=== PATIENT | female | born 1975 | race Caucasian/White ===

== ENCOUNTER 2018-04-01 13:52 | Inpatient (IN) | payer OTHER, SELFPAY ==
[2018-04-01] VITALS (21 sets, daily range): BP systolic 110–152; BP diastolic 49–98; PULSE 77–106; RESP 17–29; TEMP 36.3–36.9; O2SAT 88–100; BMI 28.0; BMI 28.1
--- NOTE | 2018-04-01 | LARBX_PTH ---
PATIENT: ALIREZA GARZA LOC: MS2 U#:[id number] AGE/SX: 43/F [place] [facility] [place]: Dr. Brandon Phan MD : 1975 BED: 1 DIS: 04/05/2018 SPEC #: [id number] RECD: 04/01/18 16:31 STATUS: JOSE RADHA #: [id number] JASON: 04/01/18 00:[address]: Brandon Phan DEPT: SURGICAL PATHOLOGY RECD BY: Porter Botello ENTERED: 04/02/18 12:31 SP TYPE: LARYNX BX OTHR DR: Dr. Eric Fuller, DO No Primary Care Phys Tissues: Laryngeal cavity Procedures: Surgery Specimen Level IV HEADER OPERATION: Diagnostic laryngoscopy, biopsy PRE-OP DIAGNOSIS: Neoplasm of uncertain behavior of larynx TISSUE SUBMITTED: Laryngeal mass MICROSCOPIC DIAGNOSIS Laryngeal mass, biopsy: Polypoid fragments of squamous mucosa with extensive ulceration, associated acute inflammation, granulation tissue reaction and superficial bacterial colonization. Negative for malignancy. See comment. MINA:sandra 04/03/18 COMMENT The findings may represent fragments of benign vocal cord polyp with ulceration and associated inflammation. Correlation with clinical findings and appropriate follow up are necessary. Case has been reviewed in consultation with Dr. Martines who concurs with the above diagnosis. IDC:CE MICROSCOPIC DESCRIPTION Slides are reviewed. GROSS DESCRIPTION Received in fixative is one container labeled with the patient's name and designated laryngeal mass. The specimen consists of multiple irregular fragments of murphy-pink soft tissue that in aggregate measure 2.5 x 2 x 0.3 cm. The entire specimen is submitted in one cassette. / MINA:sandra 04/02/18 TC: 5 [facility]: [id number]
--- NOTE | 2018-04-01 11:10 | EKG12_ITS ---
Test Reason : PRE OP Blood Pressure : / mmHG Vent. Rate : 088 BPM Atrial Rate : 088 BPM P-R Int : 144 ms QRS Dur : 070 ms QT Int : 356 ms P-R-T Axes : 057 078 051 degrees QTc Int : 430 ms Normal sinus rhythm Normal ECG Confirmed by HOLDEN KENDRICK, JULIET ([id number]), assistant production editor LIBERTY PATTON ([id number]) on 04/03/2018 11:01:03 AM Referred By: Hayden Phan Confirmed By:JULIET HATCH MD
--- NOTE | 2018-04-01 11:19 | RAD_ITS ---
STUDY: X-RAY CHEST REASON FOR EXAM: Female, 43 years old. Preoperative evaluation. TECHNIQUE: PA and lateral views of the chest. COMPARISON: None. FINDINGS: The lungs are clear and expanded. Scattered calcified granulomas. There is no demonstrated pleural abnormality. Normal size heart. Normal mediastinum and sammy. Normal visualized pulmonary arteries. Normal visualized aortic arch and descending thoracic aorta. Normal visualized thoracic spine. Normal visualized ribs, clavicles, and shoulders. There is no demonstrated abnormality of the visualized soft tissue structures of the upper abdomen. RAD/Chest PA and Lateral IMPRESSION: Scattered calcified granulomas. Electronically Signed: Kevin Fournier MD at 11:28 EST , Service support ,
--- NOTE | 2018-04-01 12:37 | OP.PCM_ITS ---
Problem List (1) Laryngeal mass Status: Chronic Report of Operation Date of Procedure: 04/01/18 Pre-Operative Diagnosis: 1. laryngeal mass. 2. respiratory failure Post-Operative Diagnosis: 1. laryngeal mass. 2. respiratory failure Surgery/Procedure Performed:: 1. tracheostomy with marion flap. 2. laryngeal biopsy with use of operative telescope Type of Anesthesia:: General Specimen's removed: laryngeal mass Description of Procedure: on the day of the procedure, after appropriate informed consent was obtained, the patient was brought to the operating room and placed in supine position on the operating table. she was placed under general endotracheal anesthesia by the anesthesiologist. the endotracheal tube was secured, the eyes were taped and padded. given the view in the office of her larynx as well as the glide scope view, i decided to place a tracheostomy. 1cc of lidocaine/epinephrine was injected into a transverse area in the low neck. the neck was prepped and draped in sterile fashion. a 2cm incision was made in the low neck transverseley with a #15 blade. the subcutaneous fat was divided and the superficial strap muscles were found along the midline raphe and retracted laterally. the deep strap muscles were also retracted. the airway was bluntly dissected and the pretracheal fascia was divided and elevated with a vein hook. tracheal rings 1 and 2 were found and a 15 blade was used to enter the airway. the tracheal ring was sutured to overlying skin with a 2-0 ethibond but no marion flap was created. the endotracheal tube was retracted, the airway was suctioned and a #6DCT was placed and inflated. end tidal CO2 returned. the trach was sutured to the skin with 3-0 vicryl. an umbilical tie was used to secure the trach. the table was rotated 90 degrees toward the surgeon. a raytec was placed on the maxillary alveolus. a phil laryngoscope was inserted and a good glottic view was obtained; this was suspended from the walton stand. immediately a 1.5- 2cm mass was seen nearly obstructing the airway. a spatula was used to examine the larynx. the mass was coming from the right true vocal cord; it appeared to involve the anterior commissure. she had severe andreina edema on the left, but no masses/involvement. a cupped biting forceps was used to take numerous biopsies of the mass and hemostasis was achieved. the table was rotated 90 degrees toward the anesthesiologist. she was brought out of anesthesia and transferred to the ICU in stable condition.
[2018-04-01] MEDS: Lubricating Jelly 60 GM Tube 30 GM TOPICAL (13:00)
[2018-04-01] MEDS: Oxymetazoline 0.05% 1 SPRAY SPRAY.BTL 15 SPRAY (13:28)
--- NOTE | 2018-04-01 13:49 | HP.PCM_ITS ---
History of Present Illness Date of Admission: 04/01/18 Chief Complaint: Trach, Laryngeal mass bx Problem List: Acute Recently Found Laryngeal Mass Suspected Chronic COPD Tobacco use The patient is a 43 y/o F w/ PMHx: Tobacco use, Recently Found Laryngeal Mass with history of chronically hoarse voice, worsening over the last 2 weeks w/ recent mild URI in addition to intermittent dyspnea, worse with any exertional attempts with sensation of airway closing up who presents to the [facility] for planned 04/01/18 Tracheostomy with marion flap with healed biopsy per ENT Dr. Phan. Alix-operatively the patient per his report had no events. Dr. Phan requests hospitalist admission post-operatively secondary to being intermittently available following OR and notes his partners will be available should any issues arise with the patient. He notes plan of care to continue trach care, routine ICU care, planned trach change to possibly cuffless trach on with discharge at that time if clinically appropriate. Upon ICU transition patient w/ increase secretions, very lethargic s/p recent anesthetics w/ trach mask in place. Past Medical History Past Medical History (Chronic Problems): Chronic Problems Laryngeal mass (Chronic) Allergies red dye Allergy (Verified 03/29/18 16:10) Swelling Home Medications: Ambulatory Orders Medication Instructions Recorded NK 03/29/18 Surgical History: - - BLTL, recent Tracheostomy and Larnygneal Bx. 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 Tobacco Use: Cigarettes Alcohol: Occasional Drugs: None - *Family History Maternal History Items: Unknown - Patient lethargic, unable to give family history. Paternal History Items: Unknown - Patient lethargic, unable to give family history. Review of Systems Unable to obtain accurate/complete ROS d/t: Lethargic, sedate s/p recent anesthesia, prior to OR ENT noted hoarse VTE Information - Inpt Only VTE Present on Admission: No VTE Mechan Device Prophylaxis: SCD's VTE Pharm Prophylaxis ordered?: Yes Subjective: Seated upright in the ICU bed, lethargic, not answering any questions, will move to stimuli, not opening eyes, recent anesthetics. Objective: Physical Examination: General: awakens to some stimuli, not alert, not oriented, cannot follow commands, seated upright in the ICU bed, intermittent coughing, trach O2 mask in place. Skin: normal color, turgor, no icterus, cyanosis, s/p recent trach, some mild oozing noted. HEENT: AT/NC aside recent trach placement, EOM unable to be assessed secondary to sedation, PERRLA, dry MM, no carotid bruits or JVD noted. Lungs: Diminished BS BL bases, increased effort, recent trach, mildly coarse, increased upper airway secretions, some fresh minimal oozing from trach site, no no rales, ronchi or wheezing. Heart: Regular rate and rhythm; no gallop, rub audible. Abdomen: soft, overweight, NTTP, ND, normal BS, no HSM. Extremities: no cyanosis, clubbing, or edema. Neurological: awakens to some stimuli, not alert, not oriented, cannot follow commands, seated upright in the ICU bed, intermittent coughing, trach O2 mask in place; cognitive function not baseline intact; pupils equally reactive to light and accomodation; cranial nerves unable to be assessed well secondary to sedation w/ recent anesthetics, moving all 4 extremities to stimuli but severely globally decreased strength given recent OR with sedation. Psychiatric: affect appears flat, no acute evidence of depressive or anxiety feelings. - Physical Exam Vital Signs Temp Pulse Resp BP Pulse Ox 98.5 F 97 18 134/86 H 100 04/01/18 11:19 04/01/18 11:19 04/01/18 11:19 04/01/18 11:19 04/01/18 11:19 Oxygen Delivery Method Room Air Weight: 179 lb 0.246 oz Body Mass Index (BMI) 28.0 Assessment/Plan The patient is a 43 y/o F w/ PMHx: Tobacco use, Recently Found Laryngeal Mass with history of chronically hoarse voice, worsening over the last 2 weeks w/ recent mild URI who presents to the [facility] for planned 04/01/18 Tracheostomy with marion flap with healed biopsy per ENT Dr. Phan. (1) Tracheal Mass w/ Chronic Hoarseness, Possible Intermittent Dyspnea secondary to Ball-Valve Movement of Mass: 04/01/18 Tracheostomy with marion flap with healed biopsy per ENT Dr. Phan. Will admit to the ICU per discussion w/ ENT, once more alert and appropriate allow diet, HOB, IS, ATC duoneb, PRN albuterol, continue trach care, routine ICU care, planned trach change to possibly cuffless trach on with discharge at that time if clinically appropriate, obtain admission labs, repeat labs in AM, PRN low dose IV ativan for anxiety per d iscussion with ENT as worsened symptoms with exertion or more anxious secondary to breathing alterations w/ type of shape of the mass. Bx pathology pending. ICU Dr. Fuller consulted, aware. (2) Suspected Possible Chronic COPD: Will maintain on oxygen with wean as tolerated to room air, continue ATC duonebs, PRN albuterol, trach care as noted, HOB, IS parameters. (3) Tobacco Abuse: Encouraged cessation, inpatient consultation per RT, NR if desired. (4) GERD: Famotidine. (5) DVT Prophylaxis: SCDs, lovenox to start 04/02/18 AM if appropriate. Code Visit Inpatient E&M: 71169 Init Hosp L3
--- NOTE | 2018-04-01 14:34 | PCM.CON.CC ---
Reason for Consult Date of Consultation: 04/01/18 Reason for Consultation: Respiratory failure History of Present Illness: The patient is a 43-year-old female, with a history as outlined below, who was admitted to the medical intensive care unit by ENT following tracheostomy with marion flap on April 01 due to the presence of a laryngeal mass. Although the patient was initially brought in in order to obtain a biopsy of the aforementioned laryngeal mass, upon direct visualization, the patient was felt to need a secure airway given the size of the lesion. The patient's operative course was uncomplicated. Her postoperative plain film chest x-ray was largely unremarkable, with the exception of scattered calcified granulomas. Of note, the patient is a current everyday smoker and has a tobacco abuse history of approximately 29 pack years. On arrival to the ICU, the patient was afebrile and hemodynamically stable. She was maintaining appropriate oxygen saturations on a 50% trach collar. Past Medical History Past Medical History (Chronic Problems): Chronic Problems Laryngeal mass (Chronic) Allergies red dye Allergy (Verified 03/29/18 16:10) Swelling Home Medications: Ambulatory Orders Medication Instructions Recorded NK 03/29/18 Surgical History: - - BLTL, recent Tracheostomy and Larnygneal Bx. 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 Tobacco Use: Cigarettes Alcohol: Occasional Drugs: None - *Family History Maternal History Items: Unknown - Patient lethargic, unable to give family history. Paternal History Items: Unknown - Patient lethargic, unable to give family history. Review of Systems Constitutional: Denies: Chills, Fever Eyes: Denies: Blurred vision, Double vision HEENT: Reports: Difficulty Swallowing Cardiovascular: Denies: Chest Pain, Palpitations Respiratory: Reports: Shortness of Breath Gastrointestinal: Denies: Abdominal Pain, Nausea, Vomiting Genitourinary: Denies: Dysuria Musculoskeletal: Denies: Joint Pain, Joint Tenderness Skin: Denies: Rash, Wounds Neurological: Denies: Numbness, Tingling, Focal weakness Psychiatric: Denies: Anxiety, Depression, Homicidal Ideations, Suicidal Ideations Hematologic/ Lymphatic: Denies: Easy Bruising, Easy Bleeding Objective: The patient's most recent lab work, culture data and imaging studies have all been personally reviewed. - Physical Exam General: Alert, Cooperative, No apparent distress HEENT: Atraumatic, PERRLA, Normocephalic Oral: No Gingival or Mucosal Lesions/ Ulcerations Neck: Supple, No Nodes, Trachea Midline, - - Tracheostomy site is C/D/I Lungs: No rhonchi, No wheeze, No rales, Diminished Cardiovascular: Regular rate, Regular Rhythm, Normal S1, Normal S2, No murmurs Abdomen: Bowel Sounds Present, Soft, Non Tender Extremities: No clubbing, No cyanosis, No edema Skin: No breakdown Musculoskeletal: No Tenderness to Palpation of Joints or Extremities Lymphatic: No Cervical, Supraclavicular, or Inguinal Adenopathy Neurological: Cranial nerves II-XII grossly intact, Neuro grossly intact Psych/Mental Status: Flat Affect Vital Signs Temp Pulse Resp BP Pulse Ox 36.3 C L 85 24 H 110/88 H 93 04/01/18 14:01 04/01/18 14:01 04/01/18 14:01 04/01/18 14:01 04/01/18 14:01 Oxygen Flow Rate (L/min) 12 Oxygen Delivery Method Venturi Mask Weight: 179 lb 0.246 oz Body Mass Index (BMI) 28.0 Clinical Impression(s) from Imaging Studies Chest X-Ray 04/01/18 11:19 IMPRESSION: Scattered calcified granulomas. Electronically Signed: Kevin Fournier MD at 11:28 EST , Service support , Labs (Last 48 Hours) 04/01/18 04/01/18 04/02/18 14:50 14:50 04:45 WBC 7.9 10.5 RBC 4.88 4.79 Hgb 13.9 13.7 Hct 42.4 42.0 MCV 86.9 87.7 MCH 28.5 28.6 MCHC 32.8 32.6 RDW 13.2 13.4 RDW Differential 42.1 42.2 Plt Count 275 258 MPV 9.8 9.6 Immature Gran % (Auto) 0.100 0.200 Neut % (Auto) 58.9 77.0 H Lymph % (Auto) 33.1 14.6 L [place] % (Auto) 5.9 7.7 Eos % (Auto) 1.7 0.3 Baso % (Auto) 0.3 0.2 Absolute Neuts (auto) 4.6 8.1 H Absolute Lymphs (auto) 2.60 1.53 Total Counted Not Reportable Not Reportable Sodium 143 Potassium 3.7 Chloride 110 H Carbon Dioxide 25.0 Anion Gap 8 BUN 6 L Creatinine 0.46 L Estim Creat Clear Calc 150.19 Est GFR (MDRD) Af Amer 189 Est GFR (MDRD) Non-Af 156 BUN/Creatinine Ratio 13.0 Glucose 101 Calcium 8.3 L Magnesium 1.8 04/02/18 04:45 WBC RBC Hgb Hct MCV MCH MCHC RDW RDW Differential Plt Count MPV Immature Gran % (Auto) Neut % (Auto) Lymph % (Auto) [place] % (Auto) Eos % (Auto) Baso % (Auto) Absolute Neuts (auto) Absolute Lymphs (auto) Total Counted Sodium 143 Potassium 3.7 Chloride 110 H Carbon Dioxide 24.0 Anion Gap 9 BUN 3 L Creatinine 0.36 L Estim Creat Clear Calc 184.74 Est GFR (MDRD) Af Amer 254 Est GFR (MDRD) Non-Af 210 BUN/Creatinine Ratio 8.4 L Glucose 102 Calcium 8.2 L Magnesium Clinical Impression(s) from Imaging Studies Chest X-Ray 04/01/18 11:19 IMPRESSION: Scattered calcified granulomas. Electronically Signed: Kevin Fournier MD at 11:28 EST , Service support , Assessment/Plan RECOMMENDATIONS: 1. Continue routine postoperative care. 2. Speech therapy evaluation tomorrow 3. Wean FiO2 as tolerated. 4. Pain control per hospitalist. 5. Continue as needed aerosol treatments 6. Start Lovenox and Pepcid for ICU prophylaxis 7. Consider initiation of nicotine replacement therapy. IMPRESSIONS: 1. Laryngeal mass, now POD #0 status post biopsy and tracheostomy The patient currently has a #6DCT in place. We will plan to continue to wean supplemental oxygen as tolerated. There is no current need for any form of ventilatory support. Continue pain control and routine postoperative care. ENT to follow for suture removal. Recommend speech therapy evaluation tomorrow. Continue bronchodilators on an as-needed basis. 2. Long-standing tobacco abuse history/questionable COPD Consider initiation of nicotine replacement therapy. Smoking cessation is strongly advisable. As needed bronchodilators will be continued. This note was generated with [employer] dictation software. It may contain incorrect words, spelling, and punctuation that were not noted in checking the note before signing. Code Visit Inpatient E&M: 26637 Init Hosp L3
--- NOTE | 2018-04-01 14:38 | CON.PCM_ITS ---
Reason for Consult Date of Consultation: 04/01/18 Reason for Consultation: Respiratory failure History of Present Illness: The patient is a 43-year-old female, with a history as outlined below, who was admitted to the medical intensive care unit by ENT following tracheostomy with marion flap on April 01 due to the presence of a laryngeal mass. Although the patient was initially brought in in order to obtain a biopsy of the aforementioned laryngeal mass, upon direct visualization, the patient was felt to need a secure airway given the size of the lesion. The patient's operative course was uncomplicated. Her postoperative plain film chest x-ray was largely unremarkable, with the exception of scattered calcified granulomas. Of note, the patient is a current everyday smoker and has a tobacco abuse history of approximately 29 pack years. On arrival to the ICU, the patient was afebrile and hemodynamically stable. She was maintaining appropriate oxygen saturations on a 50% trach collar. Past Medical History Past Medical History (Chronic Problems): Chronic Problems Laryngeal mass (Chronic) Allergies red dye Allergy (Verified 03/29/18 16:10) Swelling Home Medications: Ambulatory Orders Medication Instructions Recorded NK 03/29/18 Surgical History: - - BLTL, recent Tracheostomy and Larnygneal Bx. 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 Tobacco Use: Cigarettes Alcohol: Occasional Drugs: None - *Family History Maternal History Items: Unknown - Patient lethargic, unable to give family history. Paternal History Items: Unknown - Patient lethargic, unable to give family history. Review of Systems Constitutional: Denies: Chills, Fever Eyes: Denies: Blurred vision, Double vision HEENT: Reports: Difficulty Swallowing Cardiovascular: Denies: Chest Pain, Palpitations Respiratory: Reports: Shortness of Breath Gastrointestinal: Denies: Abdominal Pain, Nausea, Vomiting Genitourinary: Denies: Dysuria Musculoskeletal: Denies: Joint Pain, Joint Tenderness Skin: Denies: Rash, Wounds Neurological: Denies: Numbness, Tingling, Focal weakness Psychiatric: Denies: Anxiety, Depression, Homicidal Ideations, Suicidal Ideations Hematologic/ Lymphatic: Denies: Easy Bruising, Easy Bleeding Objective: The patient's most recent lab work, culture data and imaging studies have all been personally reviewed. - Physical Exam General: Alert, Cooperative, No apparent distress HEENT: Atraumatic, PERRLA, Normocephalic Oral: No Gingival or Mucosal Lesions/ Ulcerations Neck: Supple, No Nodes, Trachea Midline, - - Tracheostomy site is C/D/I Lungs: No rhonchi, No wheeze, No rales, Diminished Cardiovascular: Regular rate, Regular Rhythm, Normal S1, Normal S2, No murmurs Abdomen: Bowel Sounds Present, Soft, Non Tender Extremities: No clubbing, No cyanosis, No edema Skin: No breakdown Musculoskeletal: No Tenderness to Palpation of Joints or Extremities Lymphatic: No Cervical, Supraclavicular, or Inguinal Adenopathy Neurological: Cranial nerves II-XII grossly intact, Neuro grossly intact Psych/Mental Status: Flat Affect Vital Signs Temp Pulse Resp BP Pulse Ox 36.3 C L 85 24 H 110/88 H 93 04/01/18 14:01 04/01/18 14:01 04/01/18 14:01 04/01/18 14:01 04/01/18 14:01 Oxygen Flow Rate (L/min) 12 Oxygen Delivery Method Venturi Mask Weight: 179 lb 0.246 oz Body Mass Index (BMI) 28.0 Clinical Impression(s) from Imaging Studies Chest X-Ray 04/01/18 11:19 IMPRESSION: Scattered calcified granulomas. Electronically Signed: Kevin Fournier MD at 11:28 EST , Service support , Labs (Last 48 Hours) 04/01/18 04/01/18 04/02/18 14:50 14:50 04:45 WBC 7.9 10.5 RBC 4.88 4.79 Hgb 13.9 13.7 Hct 42.4 42.0 MCV 86.9 87.7 MCH 28.5 28.6 MCHC 32.8 32.6 RDW 13.2 13.4 RDW Differential 42.1 42.2 Plt Count 275 258 MPV 9.8 9.6 Immature Gran % (Auto) 0.100 0.200 Neut % (Auto) 58.9 77.0 H Lymph % (Auto) 33.1 14.6 L [place] % (Auto) 5.9 7.7 Eos % (Auto) 1.7 0.3 Baso % (Auto) 0.3 0.2 Absolute Neuts (auto) 4.6 8.1 H Absolute Lymphs (auto) 2.60 1.53 Total Counted Not Reportable Not Reportable Sodium 143 Potassium 3.7 Chloride 110 H Carbon Dioxide 25.0 Anion Gap 8 BUN 6 L Creatinine 0.46 L Estim Creat Clear Calc 150.19 Est GFR (MDRD) Af Amer 189 Est GFR (MDRD) Non-Af 156 BUN/Creatinine Ratio 13.0 Glucose 101 Calcium 8.3 L Magnesium 1.8 04/02/18 04:45 WBC RBC Hgb Hct MCV MCH MCHC RDW RDW Differential Plt Count MPV Immature Gran % (Auto) Neut % (Auto) Lymph % (Auto) [place] % (Auto) Eos % (Auto) Baso % (Auto) Absolute Neuts (auto) Absolute Lymphs (auto) Total Counted Sodium 143 Potassium 3.7 Chloride 110 H Carbon Dioxide 24.0 Anion Gap 9 BUN 3 L Creatinine 0.36 L Estim Creat Clear Calc 184.74 Est GFR (MDRD) Af Amer 254 Est GFR (MDRD) Non-Af 210 BUN/Creatinine Ratio 8.4 L Glucose 102 Calcium 8.2 L Magnesium Clinical Impression(s) from Imaging Studies Chest X-Ray 04/01/18 11:19 IMPRESSION: Scattered calcified granulomas. Electronically Signed: Kevin Fournier MD at 11:28 EST , Service support , Assessment/Plan RECOMMENDATIONS: 1. Continue routine postoperative care. 2. Speech therapy evaluation tomorrow 3. Wean FiO2 as tolerated. 4. Pain control per hospitalist. 5. Continue as needed aerosol treatments 6. Start Lovenox and Pepcid for ICU prophylaxis 7. Consider initiation of nicotine replacement therapy. IMPRESSIONS: 1. Laryngeal mass, now POD #0 status post biopsy and tracheostomy The patient currently has a #6DCT in place. We will plan to continue to wean supplemental oxygen as tolerated. There is no current need for any form of ventilatory support. Continue pain control and routine postoperative care. ENT to follow for suture removal. Recommend speech therapy evaluation tomorrow. Continue bronchodilators on an as-needed basis. 2. Long-standing tobacco abuse history/questionable COPD Consider initiation of nicotine replacement therapy. Smoking cessation is strongly advisable. As needed bronchodilators will be continued. This note was generated with [employer] dictation software. It may contain incorrect words, spelling, and punctuation that were not noted in checking the note before signing. Code Visit Inpatient E&M: 39940 Init Hosp L3
[2018-04-01] MEDS: LORazepam 2 MG/ML Syringe 0.5 MG IV (14:45)
--- NOTE | 2018-04-01 14:45 | NURSING ---
Pt w/ strong forceful coughing, moderate secretions, crying and tearful upon arrival to ICU. Pt not fully waking up or communicating. Continues to thrash around in bed and flail arms. Ativan given for these reasons.
--- NOTE | 2018-04-01 14:53 | PCM.HP.STD ---
History of Present Illness Date of Admission: 04/01/18 Chief Complaint: Trach, Laryngeal mass bx Problem List: Acute Recently Found Laryngeal Mass Suspected Chronic COPD Tobacco use The patient is a 43 y/o F w/ PMHx: Tobacco use, Recently Found Laryngeal Mass with history of chronically hoarse voice, worsening over the last 2 weeks w/ recent mild URI in addition to intermittent dyspnea, worse with any exertional attempts with sensation of airway closing up who presents to the [facility] for planned 04/01/18 Tracheostomy with marion flap with healed biopsy per ENT Dr. Phan. Alix-operatively the patient per his report had no events. Dr. Phan requests hospitalist admission post-operatively secondary to being intermittently available following OR and notes his partners will be available should any issues arise with the patient. He notes plan of care to continue trach care, routine ICU care, planned trach change to possibly cuffless trach on with discharge at that time if clinically appropriate. Upon ICU transition patient w/ increase secretions, very lethargic s/p recent anesthetics w/ trach mask in place. Past Medical History Past Medical History (Chronic Problems): Chronic Problems Laryngeal mass (Chronic) Allergies red dye Allergy (Verified 03/29/18 16:10) Swelling Home Medications: Ambulatory Orders Medication Instructions Recorded NK 03/29/18 Surgical History: - - BLTL, recent Tracheostomy and Larnygneal Bx. Psychiatric History: No pertinent psych hx INSTRUMENT MAN History: No pertinent INSTRUMENT MAN history Lives: Spouse/ Significant Other Smoking Status: Current every day smoker - 1 ppd tobacco x 29 years. Tobacco Use: Cigarettes Alcohol: Occasional Drugs: None - *Family History Maternal History Items: Unknown - Patient lethargic, unable to give family history. Paternal History Items: Unknown - Patient lethargic, unable to give family history. Review of Systems Unable to obtain accurate/complete ROS d/t: Lethargic, sedate s/p recent anesthesia, prior to OR ENT noted hoarse VTE Information - Inpt Only VTE Present on Admission: No VTE Mechan Device Prophylaxis: SCD's VTE Pharm Prophylaxis ordered?: Yes Subjective: Seated upright in the ICU bed, lethargic, not answering any questions, will move to stimuli, not opening eyes, recent anesthetics. Objective: Physical Examination: General: awakens to some stimuli, not alert, not oriented, cannot follow commands, seated upright in the ICU bed, intermittent coughing, trach O2 mask in place. Skin: normal color, turgor, no icterus, cyanosis, s/p recent trach, some mild oozing noted. HEENT: AT/NC aside recent trach placement, EOM unable to be assessed secondary to sedation, PERRLA, dry MM, no carotid bruits or JVD noted. Lungs: Diminished BS BL bases, increased effort, recent trach, mildly coarse, increased upper airway secretions, some fresh minimal oozing from trach site, no no rales, ronchi or wheezing. Heart: Regular rate and rhythm; no gallop, rub audible. Abdomen: soft, overweight, NTTP, ND, normal BS, no HSM. Extremities: no cyanosis, clubbing, or edema. Neurological: awakens to some stimuli, not alert, not oriented, cannot follow commands, seated upright in the ICU bed, intermittent coughing, trach O2 mask in place; cognitive function not baseline intact; pupils equally reactive to light and accomodation; cranial nerves unable to be assessed well secondary to sedation w/ recent anesthetics, moving all 4 extremities to stimuli but severely globally decreased strength given recent OR with sedation. Psychiatric: affect appears flat, no acute evidence of depressive or anxiety feelings. - Physical Exam Vital Signs Temp Pulse Resp BP Pulse Ox 98.5 F 97 18 134/86 H 100 04/01/18 11:19 04/01/18 11:19 04/01/18 11:19 04/01/18 11:19 04/01/18 11:19 Oxygen Delivery Method Room Air Weight: 179 lb 0.246 oz Body Mass Index (BMI) 28.0 Assessment/Plan The patient is a 43 y/o F w/ PMHx: Tobacco use, Recently Found Laryngeal Mass with history of chronically hoarse voice, worsening over the last 2 weeks w/ recent mild URI who presents to the [facility] for planned 04/01/18 Tracheostomy with marion flap with healed biopsy per ENT Dr. Phan. (1) Tracheal Mass w/ Chronic Hoarseness, Possible Intermittent Dyspnea secondary to Ball-Valve Movement of Mass: 04/01/18 Tracheostomy with marion flap with healed biopsy per ENT Dr. Phan. Will admit to the ICU per discussion w/ ENT, once more alert and appropriate allow diet, HOB, IS, ATC duoneb, PRN albuterol, continue trach care, routine ICU care, planned trach change to possibly cuffless trach on with discharge at that time if clinically appropriate, obtain admission labs, repeat labs in AM, PRN low dose IV ativan for anxiety per discussion with ENT as worsened symptoms with exertion or more anxious secondary to breathing alterations w/ type of shape of the mass. Bx pathology pending. ICU Dr. Fuller consulted, aware. (2) Suspected Possible Chronic COPD: Will maintain on oxygen with wean as tolerated to room air, continue ATC duonebs, PRN albuterol, trach care as noted, HOB, IS parameters. (3) Tobacco Abuse: Encouraged cessation, inpatient consultation per RT, NR if desired. (4) GERD: Famotidine. (5) DVT Prophylaxis: SCDs, lovenox to start 04/02/18 AM if appropriate. Code Visit Inpatient E&M: 91364 Init Hosp L3
[2018-04-01 15:15] LABS: Absolute Neutrophil Count 4.6 X10^3/uL (2.0-7.7); Basophil# 0.02 X10^3/uL; Basophil% 0.3 % (0-1); Eosinophil# 0.13 X10^3/uL; Eosinophils% 1.7 % (0-5); Hematocrit 42.4 % (37-47); Hemoglobin 13.9 g/dl (12.0-15.0); Lymphocyte % 33.1 % (19-41); Mean Corp Hgb Conc 32.8 g/gl (32-36); Mean Corpuscular Hgb 28.5 pg (27.0-32.0); Mean Corpuscular Volume 86.9 fL (81-99); Mean Platelet Vol. 9.8 fl (6.2-12.0); Monocyte# 0.46 X10^3/uL; Monocyte% 5.9 % (0-10); Neutrophil # 4.64 X10^3/uL (2.7-7.7); Neutrophil % 58.9 % (47-70); Platelet Count 275 K/mm3 (150-450); RBC Distribution Width CV 13.2 % (11.6-14.6); RBC Distribution Width SD 42.1 fl (35.1-43.9); Red Blood Count 4.88 M/mm3 (4.2-5.4); White Blood Count 7.9 K/mm3 (4.4-11.0)
[2018-04-01 15:19] LABS: POSITIVE COUNT NO; POSITIVE DIFFERENTIAL NO; POSITIVE MORPHOLOGY NO
[2018-04-01 15:25] LABS: Anion Gap 8 (5-15); BUN 6 mg/dL (7-18); Calcium,Total 8.3 mg/dL (8.5-10.1); Chloride 110 mmol/L (98-107); Creatinine, Serum 0.46 mg/dL (0.55-1.02); EST Glomerular Filtration Rate 156 mL/min (>60); Est Glom Filt Rate - Afr Amer 189 mL/min (>60); Estimated Creatinine Clearance 150.19 ml/min; Glucose 101 mg/dL (74-106); Magnesium 1.8 mg/dL (1.6-2.6); Potassium 3.7 mmol/L (3.5-5.1); Sodium Level 143 mmol/L (136-145)
--- NOTE | 2018-04-01 16:00 | NURSING ---
Called [facility] charge accounts audit clerk. Informed her that we did not receive pt's belongings. Reported that pt had 2 belongings bags when in [facility]. They will look for the belongings.
[2018-04-01] MEDS: 0.9% Normal Saline 1,000 ML 100 ML IV (17:00)
--- NOTE | 2018-04-01 19:15 | EKG12_ITS ---
Test Reason : CHEST PRESSURE Blood Pressure : / mmHG Vent. Rate : 089 BPM Atrial Rate : 089 BPM P-R Int : 146 ms QRS Dur : 068 ms QT Int : 352 ms P-R-T Axes : 064 073 049 degrees QTc Int : 428 ms Normal sinus rhythm Normal ECG When compared with ECG of 01-APR-2018 11:50, No significant change was found Confirmed by LUISA KENDRICK, SRIDEVI ([id number]), supervising editor news reel LEATHA TOLBERT ([id number]) on 04/09/2018 1:49:56 PM Referred By: Hayden Phan Confirmed By:SRIDEVI MORAN MD
[2018-04-02] VITALS (18 sets, daily range): BP systolic 105–149; BP diastolic 46–83; PULSE 75–95; RESP 17–25; TEMP 36.7–37.3; O2SAT 95–99
[2018-04-02] MEDS: 0.9% Normal Saline 1,000 ML 100 ML IV ×3 (01:45→21:14)
[2018-04-02 04:57] LABS: Absolute Lymphocyte Count 1.53 X10^3/ul (0.83-4.51); Absolute Neutrophil Count 8.1 X10^3/uL (2.0-7.7); Basophil# 0.02 X10^3/uL; Basophil% 0.2 % (0-1); Eosinophil# 0.03 X10^3/uL; Eosinophils% 0.3 % (0-5); Hemoglobin 13.7 g/dl (12.0-15.0); Lymphocyte # 1.53 X10^3/ul (4.0); Lymphocyte % 14.6 % (19-41); Mean Corp Hgb Conc 32.6 g/gl (32-36); Mean Corpuscular Hgb 28.6 pg (27.0-32.0); Mean Corpuscular Volume 87.7 fL (81-99); Mean Platelet Vol. 9.6 fl (6.2-12.0); Monocyte# 0.81 X10^3/uL; Monocyte% 7.7 % (0-10); Neutrophil # 8.09 X10^3/uL (2.7-7.7); Platelet Count 258 K/mm3 (150-450); RBC Distribution Width CV 13.4 % (11.6-14.6); RBC Distribution Width SD 42.2 fl (35.1-43.9); Red Blood Count 4.79 M/mm3 (4.2-5.4); White Blood Count 10.5 K/mm3 (4.4-11.0)
[2018-04-02 05:01] LABS: POSITIVE COUNT NO; POSITIVE DIFFERENTIAL NO; POSITIVE MORPHOLOGY NO
[2018-04-02 05:05] LABS: Anion Gap 9 (5-15); BUN 3 mg/dL (7-18); BUN/Creat Ratio 8.4 RATIO (10-20); Calcium,Total 8.2 mg/dL (8.5-10.1); Chloride 110 mmol/L (98-107); Creatinine, Serum 0.36 mg/dL (0.55-1.02); EST Glomerular Filtration Rate 210 mL/min (>60); Est Glom Filt Rate - Afr Amer 254 mL/min (>60); Estimated Creatinine Clearance 184.74 ml/min; Glucose 102 mg/dL (74-106); Potassium 3.7 mmol/L (3.5-5.1); Sodium Level 143 mmol/L (136-145)
--- NOTE | 2018-04-02 07:22 | PCM.PROGNOTE ---
Subjective: Postoperative day #1-status post tracheostomy with Earnest flap and laryngeal biopsy The patient is a 43-year-old female with a past medical history of tobacco dependence who was recently found to have a laryngeal mass. She was admitted to the hospital for planned tracheostomy on 04/01/[address] Blake. Pt was admitted to the ICU post-operatively and will be seen by ST for a swallowing evaluation. There is a tentative plan in place for changing the trach to a cuffless trach on prior to DC. Refused aerosols overnight and they have been changed to PRN wheezing. All events the past 24 hours been reviewed. Afebrile since admission. Vital signs are stable. She is 96-97% saturated on a trach collar with a 28% FiO2. All lab is been personally reviewed. CBC is unremarkable. BMP is unremarkable. Chest x-ray at admission showed scattered calcified granulomas. She is having pain in the neck at the trach site, she appears to be afraid to move her neck. Denies any air hunger. Not coughing Telemetry with NSR and no ectopy. She has Harman and MS ordered for pain but, has not had either. - Physical Exam General: - - sleepy, not moving her head.....very restricted rotation to the right. She has marked muscle spasm in the Left trapezius and in the the left paracervical muscles.....applied accupressure and massage to relieve spasm and the ROM improved HEENT: Normocephalic Neck: Trachea Midline Lungs: Clear to auscultation, No rhonchi, No wheeze, No rales, - - shallow respirations, poor inspiratory effort Cardiovascular: Regular rate, Regular Rhythm, Normal S1, Normal S2, No murmurs, No rub noted, No Gallop Abdomen: Bowel Sounds Present, Soft, Non Tender, Non-Distended Extremities: No edema Psych/Mental Status: Flat Affect Vital Signs Temp Pulse Resp BP Pulse Ox 98.6 F 80 22 H 134/79 H 97 04/02/18 04:00 04/02/18 06:00 04/02/18 06:00 04/02/18 06:00 04/02/18 06:00 Oxygen Flow Rate (L/min) 28 Oxygen Delivery Method Trach Collar Weight: 187 lb 9.814 oz Body Mass Index (BMI) 28.0 Intake and Output for Last 24 Hours 03/31/18 04/01/18 04/02/18 23:59 23:59 23:59 Intake Total 1320 / 1320 Balance 1320 / 1320 Laboratory Tests Past 24 Hrs 04/01/18 04/01/18 04/02/18 14:50 14:50 04:45 WBC 7.9 10.5 RBC 4.88 4.79 Hgb 13.9 13.7 Hct 42.4 42.0 MCV 86.9 87.7 MCH 28.5 28.6 MCHC 32.8 32.6 RDW 13.2 13.4 RDW Differential 42.1 42.2 Plt Count 275 258 MPV 9.8 9.6 Immature Gran % (Auto) 0.100 0.200 Neut % (Auto) 58.9 77.0 H Lymph % (Auto) 33.1 14.6 L [place] % (Auto) 5.9 7.7 Eos % (Auto) 1.7 0.3 Baso % (Auto) 0.3 0.2 Absolute Neuts (auto) 4.6 8.1 H Absolute Lymphs (auto) 2.60 1.53 Total Counted Not Reportable Not Reportable Sodium 143 Potassium 3.7 Chloride 110 H Carbon Dioxide 25.0 Anion Gap 8 BUN 6 L Creatinine 0.46 L Estim Creat Clear Calc 150.19 Est GFR (MDRD) Af Amer 189 Est GFR (MDRD) Non-Af 156 BUN/Creatinine Ratio 13.0 Glucose 101 Calcium 8.3 L Magnesium 1.8 04/02/18 04:45 WBC RBC Hgb Hct MCV MCH MCHC RDW RDW Differential Plt Count MPV Immature Gran % (Auto) Neut % (Auto) Lymph % (Auto) [place] % (Auto) Eos % (Auto) Baso % (Auto) Absolute Neuts (auto) Absolute Lymphs (auto) Total Counted Sodium 143 Potassium 3.7 Chloride 110 H Carbon Dioxide 24.0 Anion Gap 9 BUN 3 L Creatinine 0.36 L Estim Creat Clear Calc 184.74 Est GFR (MDRD) Af Amer 254 Est GFR (MDRD) Non-Af 210 BUN/Creatinine Ratio 8.4 L Glucose 102 Calcium 8.2 L Magnesium Medical Necessity - Tobacco Use Smoking Status: Current every day smoker Tobacco Use: Cigarettes Assessment/Plan POD #1 1. Laryngeal mass - S/P tracheostomy 2. tobacco dependence 3. Suspected COPD 4. 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
--- NOTE | 2018-04-02 08:46 | PCM.PN.INT ---
Subjective: The patient was seen and examined at the bedside this morning. Events from the last 24 hours have been reviewed. The patient is currently afebrile, hemodynamically stable and maintaining appropriate oxygen saturations on trach collar with an FiO2 of 20%. The patient has been refusing aerosol treatments overnight. She denies the presence of pain this morning. Objective: The patient's most recent lab work, culture data and imaging studies have all been personally reviewed. General: Alert, Cooperative, No apparent distress HEENT: Atraumatic, PERRLA, Normocephalic Oral: No Gingival or Mucosal Lesions/ Ulcerations Neck: Supple, No Nodes, Trachea Midline, - - Tracheostomy site remains C/D/I Lungs: No rhonchi, No wheeze, No rales, Diminished Cardiovascular: Regular rate, Regular Rhythm, Normal S1, Normal S2, No murmurs Abdomen: Bowel Sounds Present, Soft, Non Tender, Non-Distended Extremities: No clubbing, No cyanosis, No edema Skin: No breakdown Musculoskeletal: No Tenderness to Palpation of Joints or Extremities, No Muscle Wasting Lymphatic: No Cervical, Supraclavicular, or Inguinal Adenopathy Neurological: Neuro grossly intact Psych/Mental Status: Flat Affect, Depressed Vital Signs Temp Pulse Resp BP Pulse Ox 36.7 C 77 25 H 131/71 H 99 04/02/18 08:00 04/02/18 08:00 04/02/18 08:00 04/02/18 08:00 04/02/18 08:00 Oxygen Flow Rate (L/min) 28 Oxygen Delivery Method Trach Collar Weight: 187 lb 9.814 oz Body Mass Index (BMI) 28.0 Intake and Output for Last 24 Hours 03/31/18 04/01/18 04/02/18 23:59 23:59 23:59 Intake Total 1320 / 1320 Balance 1320 / 1320 Labs (Last 48 Hours) 04/01/18 04/01/18 04/02/18 14:50 14:50 04:45 WBC 7.9 10.5 RBC 4.88 4.79 Hgb 13.9 13.7 Hct 42.4 42.0 MCV 86.9 87.7 MCH 28.5 28.6 MCHC 32.8 32.6 RDW 13.2 13.4 RDW Differential 42.1 42.2 Plt Count 275 258 MPV 9.8 9.6 Immature Gran % (Auto) 0.100 0.200 Neut % (Auto) 58.9 77.0 H Lymph % (Auto) 33.1 14.6 L [place] % (Auto) 5.9 7.7 Eos % (Auto) 1.7 0.3 Baso % (Auto) 0.3 0.2 Absolute Neuts (auto) 4.6 8.1 H Absolute Lymphs (auto) 2.60 1.53 Total Counted Not Reportable Not Reportable Sodium 143 Potassium 3.7 Chloride 110 H Carbon Dioxide 25.0 Anion Gap 8 BUN 6 L Creatinine 0.46 L Estim Creat Clear Calc 150.19 Est GFR (MDRD) Af Amer 189 Est GFR (MDRD) Non-Af 156 BUN/Creatinine Ratio 13.0 Glucose 101 Calcium 8.3 L Magnesium 1.8 04/02/18 04:45 WBC RBC Hgb Hct MCV MCH MCHC RDW RDW Differential Plt Count MPV Immature Gran % (Auto) Neut % (Auto) Lymph % (Auto) [place] % (Auto) Eos % (Auto) Baso % (Auto) Absolute Neuts (auto) Absolute Lymphs (auto) Total Counted Sodium 143 Potassium 3.7 Chloride 110 H Carbon Dioxide 24.0 Anion Gap 9 BUN 3 L Creatinine 0.36 L Estim Creat Clear Calc 184.74 Est GFR (MDRD) Af Amer 254 Est GFR (MDRD) Non-Af 210 BUN/Creatinine Ratio 8.4 L Glucose 102 Calcium 8.2 L Magnesium Clinical Impression(s) from Imaging Studies Chest X-Ray 04/01/18 11:19 IMPRESSION: Scattered calcified granulomas. Electronically Signed: Kevin Fournier MD at 11:28 EST , Service support , Medical Necessity - Tobacco Use Smoking Status: Current every day smoker - 1 ppd tobacco x 29 years. Tobacco Use: Cigarettes Assessment/Plan RECOMMENDATIONS: 1. Continue routine postoperative care. 2. Speech therapy evaluation today 3. Wean FiO2 as tolerated. 4. Pain control per hospitalist. 5. Continue as needed aerosol treatments 6. Continue Lovenox and Pepcid for ICU prophylaxis 7. Continue nicotine replacement therapy. IMPRESSIONS: 1. Laryngeal mass, now POD #1 status post biopsy and tracheostomy The patient currently has a #6DCT in place. We will plan to continue to wean supplemental oxygen as tolerated. There is no current need for any form of ventilatory support. Continue pain control and routine postoperative care. ENT to follow for suture removal. Recommend speech therapy evaluation today. Continue bronchodilators on an as-needed basis. 2. Long-standing tobacco abuse history/questionable COPD Continue nicotine replacement therapy. Smoking cessation is strongly advisable. As needed bronchodilators will be continued. This note was generated with [employer] dictation software. It may contain incorrect words, spelling, and punctuation that were not noted in checking the note before signing. DISPOSITION: The patient is medically stable for transfer out of the intensive care unit. Given the patient's lack of ongoing ICU needs, will sign off. Please call with any additional questions. Code Visit Inpatient E&M: [id number] Subs Hosp L2
--- NOTE | 2018-04-02 09:46 | CASEMGMT ---
Addendum entered by Jani Najera 04/02/18 11:58: Insurance rep to assist with dc needs is Queenie Gaona PH: FX: She requested Home Health orders. Order entered and faxed. Still awaiting approval to contact DME, and still need script from Dr. Blake when DME company is given. Original Note: RN CM Assessment Presentation: Scheduled surgery for tracheostomy with marion flap Intro role of CM and purpose of RN CM assessment to patient's . Pt is sleeping. Updated on plan of care for home. Discussed needing to provide equipment for home and home health nurse on dc. is agreeable to any agencies and DME that are [employer] for their insurance. -[facility]OD[facility] called to [employer] insurance Nurse Navigator line . Case will be assigned to a aircraft sales representative who will contact CAM APODACA with approval to contact 3rd alliance party agency [employer] . This agency will then assist with setting up DME and Home Health. -No script for supplies noted on chart. Call to office to request list of supplies Dr. Phan will need for pt on dc. Per nurse, they do not have this. Will need script from Dr. Phan for supplies on dc, including replacement style/size trach. PCP: pt does not have PCP Specialists: Dr. Phan Preferred Pharmacy: [facility] [place], [place] Insurance: [employer] Prescription Benefit: yes LNOK: , Jhonny Avalos Living Arrangements: one story home with 3 steps into home. Transportation: is able to drive pt for f/u. DME/HHC: none previously DC PLAN: Home with home health.
--- NOTE | 2018-04-02 09:59 | PN.SURG_ITS ---
Subjective: no events overnight. Objective: x - Physical Exam General: Alert HEENT: - Neck: - - #6DCT in place with sutures and umbilical tie Lungs: - - no stridor Vital Signs Temp Pulse Resp BP Pulse Ox 98.0 F 84 25 H 132/73 H 98 04/02/18 08:00 04/02/18 09:00 04/02/18 09:00 04/02/18 09:00 04/02/18 09:00 Oxygen Flow Rate (L/min) 28 Oxygen Delivery Method Trach Collar Weight: 85.1 kg Body Mass Index (BMI) 28.0 Intake and Output for Last 24 Hours 03/31/18 04/01/18 04/02/18 23:59 23:59 23:59 Intake Total 1320 / 1320 Balance 1320 / 1320 Laboratory Tests Past 24 Hrs 04/01/18 04/01/18 04/02/18 14:50 14:50 04:45 WBC 7.9 10.5 RBC 4.88 4.79 Hgb 13.9 13.7 Hct 42.4 42.0 MCV 86.9 87.7 MCH 28.5 28.6 MCHC 32.8 32.6 RDW 13.2 13.4 RDW Differential 42.1 42.2 Plt Count 275 258 MPV 9.8 9.6 Immature Gran % (Auto) 0.100 0.200 Neut % (Auto) 58.9 77.0 H Lymph % (Auto) 33.1 14.6 L [place] % (Auto) 5.9 7.7 Eos % (Auto) 1.7 0.3 Baso % (Auto) 0.3 0.2 Absolute Neuts (auto) 4.6 8.1 H Absolute Lymphs (auto) 2.60 1.53 Total Counted Not Reportable Not Reportable Sodium 143 Potassium 3.7 Chloride 110 H Carbon Dioxide 25.0 Anion Gap 8 BUN 6 L Creatinine 0.46 L Estim Creat Clear Calc 150.19 Est GFR (MDRD) Af Amer 189 Est GFR (MDRD) Non-Af 156 BUN/Creatinine Ratio 13.0 Glucose 101 Calcium 8.3 L Magnesium 1.8 04/02/18 04:45 WBC RBC Hgb Hct MCV MCH MCHC RDW RDW Differential Plt Count MPV Immature Gran % (Auto) Neut % (Auto) Lymph % (Auto) [place] % (Auto) Eos % (Auto) Baso % (Auto) Absolute Neuts (auto) Absolute Lymphs (auto) Total Counted Sodium 143 Potassium 3.7 Chloride 110 H Carbon Dioxide 24.0 Anion Gap 9 BUN 3 L Creatinine 0.36 L Estim Creat Clear Calc 184.74 Est GFR (MDRD) Af Amer 254 Est GFR (MDRD) Non-Af 210 BUN/Creatinine Ratio 8.4 L Glucose 102 Calcium 8.2 L Magnesium Medical Necessity - Tobacco Use Smoking Status: Current every day smoker Tobacco Use: Cigarettes Assessment/Plan 43 year old female POD#1 s/p diagnostic laryngoscopy with biopsy and tracheostomy of large right-sided glottic mass -no issues overnight -ok to proceed with diet, agree with speech and swallow assessment -awaiting pathology, will be back next week -will change tracheostomy to #6CFS morning
--- NOTE | 2018-04-02 11:34 | NURSING ---
Patient transferred from ICU- continuous spo2/ tele monitor placed upon arrival. Pt. suctioned x3 due to increase in secretions with movement. pt tolerated well. New gauze placed around trach insertion site due to increased secretions to area. Area around trach dry and intact with sutures and neck tie in place. Oxygen in place and Kpad placed to posterior neck--per pt request and per order. SCD's in place and vitals taken. Pt spo2 90-92% with o2 via trach collar at 28. Pt now resting eyes closed. Family notified of refreshment center and asked if they have any questions- to which they deny at this time. Family notified staff that they have a password set up that must be given prior to giving any information over phone-- Fluluciay.
--- NOTE | 2018-04-02 12:54 | CASEMGMT ---
Addendum entered by Jani Najera 04/02/18 15:07: Call received from [employer] @ [email or web address]. DME provider for trach supplies will be through [facility]. Shannan, supervisor contact lens. CAM APODACA called to [employer] who verified trach supplies and suction machine can be provided through [facility]. PH: [phone] FX: [phone] -Script for trach supplies partially completed, physician will need to esperanza what additional supplies he would like on script and sign. This will then need to be faxed to [employer] @ [employer] . She will then need to get approval for supplies and equipment prior to [employer] filling request. per [employer], they will need item #'s for supplies. RN PAULIE let her know these will need to come from [facility] as hospital cm does not have access to these numbers. She will contact Shannan @ [employer] once she has script. Sultana @ [employer] is working on Home Health. Message left with call back for Eliza LEVY CM who will be covering case for tomorrow. Original Note: Call received from [employer] @ [employer]. /FAX (same #). When script is received, can fax to [employer]. Needs reference or item numbers on the script. CAM APODACA requested to see if [employer] is available as [employer] for patient. [employer] will contact [facility] and let CAM APODACA know. If [employer] is available to use as DME, can use their preprinted script, otherwise supplies will need to be written on separate script. Quan INMAN RN ACM
[2018-04-02 19:36] LABS: Bedside Glucose 91 mg/dL (70-110)
[2018-04-03] VITALS (10 sets, daily range): BP systolic 122–144; BP diastolic 69–83; PULSE 86–98; RESP 18; TEMP 36.8–37.4; O2SAT 94–97
[2018-04-03] MEDS: 0.9% Normal Saline 1,000 ML 100 ML IV ×2 (07:43→18:44)
--- NOTE | 2018-04-03 08:04 | PN_ITS ---
Subjective: Postoperative day #2 All events of the past 24 hours been reviewed. T-max is 99.4 this morning Vital signs are stable. She is 96% saturated on room air. She was seen by the speech therapist yesterday and remains n.p.o. She had poor effort when the ST was evaluating. Affect is flat. She does not make good eye contact. She is going for a MBS today Bx results are pending. Continues to c/o pain in the neck and around the trach......has not been taking any pain medication. denies SOB, CP, nausea Objective: - Physical Exam General: - - sleepy, better ROM in the neck today but still with restricted R rotation and SB. Massage done and this helps HEENT: Normocephalic Neck: Trachea Midline....dressing is dry around the trach Lungs: Clear to auscultation, No rhonchi, No wheeze, No rales, - - shallow respirations, poor inspiratory effort Cardiovascular: Regular rate, Regular Rhythm, Normal S1, Normal S2, No murmurs, No rub noted, No Gallop Abdomen: Bowel Sounds Present, Soft, Non Tender, Non-Distended Extremities: No edema Psych/Mental Status: Flat Affect, tearful today.....looks afraid but she denies this - Physical Exam Vital Signs Temp Pulse Resp BP Pulse Ox 99.4 F H 86 18 122/69 H 96 04/03/18 02:05 04/03/18 04:00 04/03/18 02:05 04/03/18 02:05 04/03/18 07:00 Oxygen Flow Rate (L/min) 8 Oxygen Delivery Method Trach Collar Weight: 179 lb 10.828 oz Body Mass Index (BMI) 28.0 Intake and Output for Last 24 Hours 04/01/18 04/02/18 04/03/18 23:59 23:59 23:59 Intake Total 1320 / 1320 1889 / 1889 Output Total 600 / 600 Balance 1320 / 1320 1289 / 1289 POC Glucose 04/02/18 18:16 POC Glucose 91 Medical Necessity - Tobacco Use Smoking Status: Current every day smoker - 1 ppd tobacco x 29 years. Tobacco Use: Cigarettes Assessment/Plan POD #1 1. Laryngeal mass - S/P tracheostomy and debulking of the mass......bx report is pending 2. tobacco dependence 3. Suspected COPD 4. 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 Blake.....plans on changing to a cuffless trach tube tomorrow Will continue to work with ST Await the bx report Code Visit Inpatient E&M: [id number] Subs Hosp L2
[2018-04-03] MEDS: Capsaicin 0.025% 1 APPLIC Tube TOPICAL (11:25)
--- NOTE | 2018-04-03 11:54 | PCM.PN.SRG ---
Subjective: doing better today. no issues with the trach. - Physical Exam General: Alert, Oriented x3, Cooperative Neck: - - #6CFS in place Vital Signs Temp Pulse Resp BP Pulse Ox 98.2 F 95 18 123/79 H 97 04/03/18 08:25 04/03/18 08:25 04/03/18 08:25 04/03/18 08:25 04/03/18 08:25 Oxygen Flow Rate (L/min) 8 Oxygen Delivery Method Trach Collar Weight: 81.5 kg Body Mass Index (BMI) 28.0 Intake and Output for Last 24 Hours 04/01/18 04/02/18 04/03/18 23:59 23:59 23:59 Intake Total 1320 / 1320 2421 / 2421 Output Total 950 / 950 Balance 1320 / 1320 1471 / 1471 POC Glucose 04/02/18 18:16 POC Glucose 91 Medical Necessity - Tobacco Use Smoking Status: Current every day smoker - 1 ppd tobacco x 29 years. 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
--- NOTE | 2018-04-03 12:02 | CASEMGMT ---
Addendum entered by Shani Falcon 04/03/18 14:00: Call received from [employer] @ [employer] confirming Script was received. Dell states she has faxed this to [facility] and is awaiting CPT codes. [employer] requests clinical documentation be faxed to her. H/P and progress notes faxed as requested. Original Note: Addendum entered by Shani Falcon 04/03/18 12:42: Call placed to [facility] [employer] to inquire about Home Health status. No answer. Message left. Awaiting return call. Original Note: CAM APODACA NOTE: Script obtained from Dr Chatterjee for Tracheostomy supplies and faxed to [employer] @ [email or web address] @ . Fax confirmation received that fax went through successfully. Saray INMAN RN CM
[2018-04-03] MEDS: 0.9% NaCl Peripheral Flush Adult/Peds IV (12:41)
[2018-04-03] MEDS: Morphine 2 MG/ML Syringe IV (12:42)
--- NOTE | 2018-04-03 13:30 | SP.MBSS_ITS ---
PRIMARY / SECONDARY DIAGNOSIS: dysphagia (R13.12) REFERRING PHYSICIAN: Dr. Mary Massey MD CURRENT DIET: NPO DENTITION: upper dentures; edentulous lower MENTAL STATUS: WNL RESPIRATORY STATUS: O2 via room air via tracheostomy tube (Shiley 6mm; cuffed ? deflated) REASON FOR REFERRAL: The Patient is a 43 year old female referred for a modified barium swallow (MBS) study to objectively assess the Patients oropharyngeal swallow function under fluoroscopy status post 04/01/2018 planned tracheostomy with marion flap secondary to a recently identified laryngeal mass. Assistance with tracheostomy suctioning and management provided by respiratory therapy (RT Brian and RT Hazel); tracheostomy tube in place (Shiley 6mm; cuffed), initially minimally inflated, though deflated (RT Brian / RT Hazel) MEDICAL HISTORY: Suspected chronic obstructive pulmonary disease, current smoker. PREVIOUS MODIFIED BARIUM SWALLOW STUDY: none ADDITIONAL OBJECTIVE ASSESSMENT RESULTS: 04/01/2018 CXR revealed scattered calcified granulomas. ASSESSMENT PARAMETERS: The Patient participated in a Modified Barium Swallow (MBS) study on 04/03/2018. Dr. Fournier was the radiologist present for this evaluation. This study was recorded in the lateral view and images were sent to PACs for storage. Scoring was completed through the on a trial by trial basis through the 8-point Penetration-Aspiration Scale (PAS) and Videofluoroscopic Scale Score (VSS), and summarized via the Modified Barium Swallow Impairment Profile (MBSImP) and Bolus Residue Scale (BRS), with severity scoring through the Dysphagia Severity Rating Scale (DSRS) and Swallowing Performance Scale (PSP), and recommended diet textures through the International Dysphagia Diet Standardisation Initiative (IDDSI). RESULTS OF THE EVALUATION: The Patient presents with moderate to severe oropharyngeal dysphagia (SPS: 6, DSRS: 5) with grade IV SILENT aspiration of thin liquids attributed to iatrogenic factors (recent tracheostomy placement). OBJECTIVE ASSESSMENT OF SWALLOW FUNCTION (QUANTITATIVE ? PER TRIAL): PENETRATION / ASPIRATION SCALE (MONTES): 1 = does not enter airway 2 = enters airway/above vocal folds/ejected 3 = enters airway/above vocal folds/not ejected 4 = enters airway/contacts vocal folds/ejected 5 = enters airway/contacts vocal folds/not ejected 6 = enters airway/below vocal folds/ejected 7 = enters airway/below vocal folds/not ejected despite effort 8 = enters airway/below vocal folds/no effort VIDEOFLOROSCOPIC SCALE SCORE (MONTES): Grade I = aspiration of material that has penetrated into the laryngeal vestibule, intact cough reflex Grade II = aspiration < 10 % of the bolus, intact cough reflex Grade III = aspiration of < 10 % of the bolus, reduced cough reflex or aspiration of > 10 % of the bolus, intact cough reflex Grade IV = aspiration of > 10 % of the bolus, reduced cough reflex PENETRATION / ASPIRATION SCALE (SCORE) WITH VIDEOFLOROSCOPIC SCALE SCORE: Thin liquid - 5 mL tsp.: 1 Thin liquids via cup (single sip): 8 ? Grade IV Pudding via spoon: 1 Pudding via spoon: 1 Honey thickened liquid - 5 mL tsp.: 1 Honey thickened liquid - 5 mL tsp.: 1 Honey thickened liquid - 5 mL tsp.: 1 Braswell thickened liquid - 5 mL tsp.: 1 Braswell thickened liquid - 5 mL tsp.: 1 Braswell thickened liquid - 5 mL tsp.: 1 OBJECTIVE ASSESSMENT OF SWALLOW FUNCTION (QUANTITATIVE ? AGGREGATE): MODIFIED BARIUM SWALLOW IMPAIRMENT PROFILE (MBSImP) LABIAL SEAL: 0 (of 4) no labial escape TONGUE CONTROL DURING BOLUS MANIPULATION: 2 (of 3) posterior escape < 50% BOLUS PREPARATION / MASTICATION: 3 (of 3) did not test due to safety BOLUS TRANSPORT / LINGUAL MOTION: 2 (of 4) slowed tongue motion ORAL RESIDUE: 2 (of 4) residue collection on oral structures INITIATION OF PHARYNGEAL SWALLOW: 3 (of 4) bolus head in pyriforms SOFT PALATE ELEVATION: 0 (of 4) no bolus between soft palate & pharyngeal wall LARYNGEAL ELEVATION: 2 (of 3) minimal superior movement; minimal approximation ANTERIOR HYOID EXCURSION: 1 (of 2) partial anterior movement EPIGLOTTIC MOVEMENT: 1 (of 2) partial epiglottic inversion LARYNGEAL VESTIBULE CLOSURE: 1 (of 2) incomplete laryngeal vestibule closure PHARYNGEAL STRIPPING WAVE: 1 (of 2) pharyngeal stripping wave present / diminished PE SEGMENT OPENIN (of 3) minimal distension / duration; marked obstruction TONGUE BASE RETRACTION: 2 (of 4) narrow column of contrast PHARYNGEAL RESIDUE: 3 (of 4) majority of contrast remaining ESOPHAGEAL BOLUS CLEARANCE: 3 (of 4) retention; retrograde flow through PES ORAL TOTAL SUM: PHARYNGEAL TOTAL SUM: ESOPHAGEAL TOTAL SUM: 3 / 4 OVERALL IMPRESSION (OI) SCORE: 28 / 55 BOLUS RESIDUE SCALE (BRS): 4 (of 6) residue in valleculae and piriform sinus SWALLOWING PERFORMANCE SCALE (SPS): 6 (moderate to severe) DYSPHAGIA SEVERITY RATING SCALE (DSRS): 5 (moderate to severe) OBJECTIVE ASSESSMENT OF SWALLOW FUNCTION (QUALITATIVE): ORAL PREPARATORY PHASE: oral preparatory phase marked by sufficient anterior oral containment; unable to assess mastication efficiency (held out of concern for safety given the Patients poor pharyngeal motility). ORAL TRANSITIONAL PHASE: oral transitional phase marked by generalized slowing in regards to oral rate of movement, partially attributed to phagophobia, with the Patient holding the bolus for greater than 30 seconds on one occasion due to anticipated poor clearance (improved with biofeedback through direct imaging); impaired oral clearance without side specific consolidation, though again I attribute this in part to phagophobia, with noted piecemeal deglutition through the majority of trials despite the rather small bolus sizes trialed; incompetent tongue?palate seal resulting in premature posterior bolus loss during trials of less viscous liquid textures. PHARYNGEAL PHASE: pharyngeal phase marked by consistent pharyngeal swallow delay / dyssynchrony with bolus dwell times occasionally reaching over 5 seconds in length; reduced hyolaryngeal excursion and duration with suboptimal laryngeal vestibule closure / pressure / duration, with insufficient laryngeal vestibule pressure generated to expel penetrated material; marked pharyngeal dysmotility with rather significant reduction in pharyngoesophageal segment opening resulting in copious post prandial collections of residue within the pyriforms, which directly contributed to post prandial penetration and subsequent SILENT aspiration of thin liquids; no signs of velopharyngeal impairments. ESOPHAGEAL PHASE: esophageal phase marked by mild retention with retrograde flow above the pharyngoesophageal segment on 1 occasion, no further findings. CONTRIBUTING / COMPLICATING FACTORS AND NOTABLE FINDINGS: tracheostomy tube visualized. No response to aspiration (atussia) with very weak cued volitional cough intensity generated to expel penetrated material / tracheobronchial aspiration (dystussia vs. atussia). Noted phagophobia described above, likely a concerning finding when considering likelihood for sufficient caloric intake. Limited improvements gleaned from reduction in bolus size selection, improved tolerance through diet texture adjustments, though significant risk for aspiration persists. RECOMMENDATIONS AND CONSIDERATIONS: The Patient was noted to SILENTLY aspirate with thin liquids, with clinical assessment at bedside relying on identification of classic overt signs and symptoms of aspiration considered unreliable. Would strongly discourage advancement past nectar thickened liquids without completion of a repeat modified barium swallow study due to the extent of aspirate identified that was SILENT in nature. Recommend a repeat modified barium swallow study within 1 - 2 weeks (if clinically appropriate) to further assess the presence and extent of silent and overt aspiration prior to advancement to thin liquids. The Patient requires intensive skilled speech-language intervention targeting diet texture management and training / implementation of recommended compensatory strategies; training and implementation of a home oral care protocol to reduce the effects of xerostomia and improve / maintain the integrity of the oral mucosa reducing the risk of aspiration related pulmonary complications; and Patient and caregiver training targeting meal preparation / thickened liquid preparation if unable to advance to baseline diet textures prior to discharge (very likely). Anticipate / likely improvement in swallow function following 1-2 weeks of recovery post tracheostomy tube placement, though unclear as to what degree. Would consider continued careful monitoring with periodic temperature checks post intake and frequent lung auscultations with particular concern if left lower lobe coarse crackles / rhonchi are noted. Results and recommendations were discussed with the Patient immediately following MBS completion, with the Patient verbalizing understanding and agreement with all recommendations and education provided. DIET TEXTURE RECOMMENDATIONS: Will recommend a pureed textured (IDDSI: 4), nectar thickened liquid (IDDSI: 2) diet RECOMMENDED COMPENSATORY STRATEGIES: Direct supervision, reduced bolus volume / rate of ingestion with all intake via spoon (1/2 tsp. max), seated upright at 90 degrees during PO intake, remain upright for 30-60 minutes post meal (GERD precaution), medications crushed in purees. IMAGE COUNT: [id number] Bebeto Echavarria M.A., CCC-ENGINE WIPER MBSImP Certified, LSVT Certified [facility] Speech-Language Pathology Department [email or web address]
--- NOTE | 2018-04-03 13:40 | RAD_ITS ---
STUDY: SWALLOWING STUDY REASON FOR EXAM: Female, 43 years old. Dysphagia. Laryngeal mass. TECHNIQUE: The examination was performed with Speech Pathology in attendance. Under fluoroscopic observation, the patient ingested thin barium, thick barium, barium pudding, and barium coated cracker. FLUOROSCOPY TIME: 3:16 minutes/seconds. 2814 spot images were obtained. RADIOLOGIST INVOLVEMENT: Radiologist was present and providing direct supervision. COMPARISON: None. FINDINGS: The following was observed during swallowing of the various mixtures of barium: Thin Barium: Silent aspiration with ingestion of the thin liquids. Thick Barium: There was no evidence of aspiration or laryngeal penetration. Barium Pudding: There was no evidence of aspiration or laryngeal penetration. RAD/Swallowing Function w/Video IMPRESSION: Silent aspiration with ingestion of thin liquids. The swallow study findings were discussed with the patient by the speech pathologist at the conclusion of the examination. Please see speech pathology report for more information and recommendations. Electronically Signed: Kevin Fournier, at 15:45 EST , Service support ,
[2018-04-03] MEDS: Famotidine 20 MG Tablet PO (22:44)
[2018-04-04] VITALS (9 sets, daily range): BP systolic 118–140; BP diastolic 65–87; PULSE 64–92; RESP 16–20; TEMP 36.5–37.2; O2SAT 96–100
[2018-04-04] MEDS: 0.9% Normal Saline 1,000 ML 100 ML IV ×3 (04:22→22:59)
[2018-04-04] MEDS: Morphine 2 MG/ML Syringe IV (05:48)
[2018-04-04] MEDS: 0.9% NaCl Peripheral Flush Adult/Peds IV (05:48)
--- NOTE | 2018-04-04 08:04 | PCM.PN.SRG ---
Subjective: no issues overnight - Physical Exam General: Alert, Oriented x3, Cooperative Neck: - - #6DCT in place Vital Signs Temp Pulse Resp BP Pulse Ox 98.7 F 92 20 H 140/87 H 96 04/04/18 04:36 04/04/18 04:36 04/04/18 04:36 04/04/18 04:36 04/04/18 04:36 Oxygen Flow Rate (L/min) 8 Oxygen Delivery Method Trach Collar Weight: 83.9 kg Body Mass Index (BMI) 28.0 Intake and Output for Last 24 Hours 04/02/18 04/03/18 04/04/18 23:59 23:59 23:59 Intake Total 1320 / 1320 2985 / 2985 539 / 539 Output Total 1250 / 1250 400 / 400 Balance 1320 / 1320 1735 / 1735 139 / 139 Medical Necessity - Tobacco Use Smoking Status: Current every day smoker - 1 ppd tobacco x 29 years. 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 no malignancy. -tracheostomy removed, tract examined. ethibond stitch cut. no marion flap was created in surgery. -xeroform placed over stoma, followed by a folded 4x4, followed by tape. observed for 10 minutes with no issues breathing, no stridor, no desaturations with full stoma occlusion. nursing observed dressing and will teach family. she should place her hand over the area with light pressure to occlude the stoma when she talks or coughs. the dressing is to be changed at home twice daily. -she should be observed now after decannulation with continuous pulse ox for 24 hours. if she doesnt have any issues, she can be discharged tomorrow (sunday) morning. -she is to see me next sunday in clinic. she should call [phone] to make that appt.
--- NOTE | 2018-04-04 08:39 | CPS ---
at bedside, Dr. Phan removed trach.
--- NOTE | 2018-04-04 09:37 | PCM.PROGNOTE ---
Subjective: Postoperative day #3. All events of the past 24 hours of been reviewed. Pathology on the laryngeal mass was negative for malignancy. The trach tube was removed by Dr. Blake today and a dressing was applied. She is able to talk now. She continues to c/o pain in the neck and around the stoma Objective: - Physical Exam General: - - more alert today and able to talk, softly HEENT: Normocephalic Neck: Trachea Midline....dressing is dry over the stoma Lungs: Clear to auscultation but very diminished, No rhonchi, No wheeze, No rales, - - shallow respirations, poor inspiratory effort. CXR at admission shows hyperinflation Cardiovascular: Regular rate, Regular Rhythm, Normal S1, Normal S2, No murmurs, No rub noted, No Gallop Abdomen: Bowel Sounds Present, Soft, Non Tender, Non-Distended Extremities: No edema Psych/Mental Status: more interactive today, glad the biopsy was negative - Physical Exam Vital Signs Temp Pulse Resp BP Pulse Ox 98.7 F 92 20 H 140/87 H 96 04/04/18 04:36 04/04/18 04:36 04/04/18 04:36 04/04/18 04:36 04/04/18 07:03 Oxygen Flow Rate (L/min) 8 Oxygen Delivery Method Room Air Weight: 184 lb 15.485 oz Body Mass Index (BMI) 28.0 Intake and Output for Last 24 Hours 04/02/18 04/03/18 04/04/18 23:59 23:59 23:59 Intake Total 1320 / 1320 2985 / 2985 539 / 539 Output Total 1250 / 1250 400 / 400 Balance 1320 / 1320 1735 / 1735 139 / 139 Medical Necessity - Tobacco Use Smoking Status: Current every day smoker - 1 ppd tobacco x 29 years. Tobacco Use: Cigarettes Assessment/Plan 1. Laryngeal mass - S/P tracheostomy and debulking of the mass......bx report is negtive for malignancy and the trach tube was removed today 2. tobacco dependence 3. Suspected COPD 4. 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 Tylenol liquid and Motrin liquid as needed pain Encouraged the patient to get up and ambulate today Smoking cessation counselling given today......does not want a nicotine patch at [place]. Tells me that she has quit smoking in the past but, started again because of stress. I suggested she consider counselling Code Visit Inpatient E&M: [id number] Subs Hosp L1
[2018-04-04] MEDS: Famotidine 20 MG Tablet PO (10:31)
--- NOTE | 2018-04-04 15:04 | CASEMGMT ---
CAM APODACA received update from Gila from [employer] stating that she has not been able to find HHC for patient within 50 miles that will accept patient. Ileana provided number for Queenie [phone], PAULIE from [facility]. Per Ileana [facility]ie was going to continue to look for HHC. This RN CM called and left message for [facility]ie suggesting that insurance seek one time contract for HHC. CAM APODACA then received call from Stacy from [facility], , who is working on contract for HHC and asked this RN PAULIE which HHC company it was being setup with. CAM APODACA told Stacy, that it was being setup by Queenie at [facility]. Stacy stated she got email from Queenie to call this RN PAULIE to setup contract. Stacy asked for suggested HHC in area to reach out to, to initiate contract for HHC. CAM APODACA [facility], [facility], and [facility]. RN CAM APODACA called Fanta at [facility] to update on potential contract for HHC and anticipated discharge for 04/05/18. CAM APODACA also called [employer] at [employer], who is setting up DME supplies to confirm that supplies are setup. No answer, voice message left for return call. CM will continue to follow this patient and plan for a safe discharge.
[2018-04-05 01:29] VITALS: BP 131/75; PULSE 78; RESP 18; TEMP 36.7; O2SAT 96
--- NOTE | 2018-04-05 09:30 | CASEMGMT ---
Addendum entered by Sahni Falcon 04/05/18 21:16: 1330: Pt uses [facility] in [place]. Call placed to [employer] and inquired if pt could get supplies there. Per [facility], other [facility] are not in network with pt's insurance and that she would need to get from [facility]. Script for dressing supplies obtained from Dr Massey and faxed to both [employer] and [facility] @ [phone]. Call placed to [facility] and spoke with Tiesha. Per Tiesha, they would need to order the supplies through a vendor and will deliver supplies to pt's home but they would not arrive to pt's home until next week. Pt made aware of arrangements for these to be delivered. RN, Annabelle, made aware and states she will send enough supplies home with pt to get her through mid next week. 1400: Pt will need Out-pt ST. Pt has appt scheduled for Cookie Swallow on Sunday04/10/18. Script obtained from Dr Massey for ST and faxed to [facility]. Call placed to [facility] and they confirmed they received it. They stated once pt has her Cookie Swallow done on Sunday, they will contact pt to schedule an appt for ST. Pt made aware of same. 0229: Call placed to insurance Nurse Navigator line @ [phone] and spoke with Elvie. Inquired if [facility] is in network with [facility] for out-pt ST therapy. She states she will open a case and check to see if they are in network. Elvie aware pt is being discharged now. She states once insurance coverage is determined, they will notify the pt. Pt made aware of same. Original Note: Addendum entered by Shani Falcon 04/05/18 11:08: Noted that pt's trach has been removed. RN CM to room to talk with pt and she states she is comfortable with changing dressings to trach stoma and that her would be available to assist if needed. Pt will no longer need HHC or trach supplies. Call placed to Stacy @ [facility] and she was notified pt will no longer require HHC. Call placed to Dell @ [employer] and she was made aware pt will no longer need trach supplies. Dell states she will notify [employer] of same. Dell aware pt will need xeroform, 4x4's, and medipore tape and she states she will contact [employer] to see if they can supply these for pt. Will obtain script for these supplies and fax to [employer] once available. Original Note: Addendum entered by Shani Falcon 04/05/18 09:44: Call placed to [employer] @ and spoke with Tushar. Tushar confirms they did receive Script for supplies from [employer] and states that Tiesha is the one working on getting supplies. Tushar is aware of probable discharge today and states Tiesha is working on expediting getting supplies for pt. Original Note: CAM APODACA NOTE: Call placed to [employer] @ [employer] to inquire about trach supplies. Dell states she has not heard back from [employer] re: if they have all the codes/info they need for the supplies. Dell states she will try to contact them again today. Dell aware of probable discharge today. Call placed to Stacy, @ [facility], to inquire if [facility] agency has been setup. No answer. Left message. Awaiting return call. Saray INMAN RN CM
[2018-04-05 10:06] VITALS: BP 128/66; PULSE 61; RESP 20; TEMP 36.9; O2SAT 97
[2018-04-05] MEDS: 0.9% Normal Saline 1,000 ML 100 ML IV (10:08)
[2018-04-05] MEDS: Famotidine 20 MG Tablet PO (10:09)
--- NOTE | 2018-04-05 13:47 | PCM.DC ---
- Discharge Diagnoses Current Active Problems: Current Active and Chronic Problems Laryngeal mass (Chronic) You will use the following diet at home:: Other - REGULAR DIET WITH PUREED FOODS AND NECTAR THICK LIQUIDS Your food should be the consistency of: Puree Your liquids should be the consistency of: [place] Thick Call your doctor if you observe: Fever of 101 or Higher, Shortness of breath, Dizziness, Fainting spells, Chest pain, - - COUGH Additional Instructions: You can take Motrin or tylenol for pain. The mass was not malignant. Your chest XRAY shows hyperinflation with flattened diaphragms....this is frequently see with COPD. It would be in your best interest to stop smoking. If you smoke to control anxiety I suggest you consider seeing a counsellor or a psychologist to get the anxiety under control with therapy. We have a smoking cessation program here at the hospital that is run by the respiratory therapists......just call the hospital and ask to be put through. Allergies/Adverse Reactions: Allergies red dye Allergy (Verified 03/29/18 16:10) Swelling Medications to take at Discharge NK 03/29/18 Primary Care Physician: Care Physician,No Primary [Primary Care Provider] - Test Results: Test results from this visit will be discussed in further detail at your follow-up appointment, if applicable. Please Follow Up With: Hayden Phan MD When: next sunday Proposed Discharge Date: 04/05/18
--- NOTE | 2018-04-05 13:54 | DCINST_ITS ---
- Discharge Diagnoses Current Active Problems: Current Active and Chronic Problems Laryngeal mass (Chronic) You will use the following diet at home:: Other - REGULAR DIET WITH PUREED FOODS AND NECTAR THICK LIQUIDS Your food should be the consistency of: Puree Your liquids should be the consistency of: [place] Thick Call your doctor if you observe: Fever of 101 or Higher, Shortness of breath, Dizziness, Fainting spells, Chest pain, - - COUGH Additional Instructions: You can take Motrin or tylenol for pain. The mass was not malignant. Your chest XRAY shows hyperinflation with flattened diaphragms....this is frequently see with COPD. It would be in your best interest to stop smoking. If you smoke to control anxiety I suggest you consider seeing a counsellor or a psychologist to get the anxiety under control with therapy. We have a smoking cessation program here at the hospital that is run by the respiratory therapists......just call the hospital and ask to be put through. Allergies/Adverse Reactions: Allergies red dye Allergy (Verified 03/29/18 16:10) Swelling Medications to take at Discharge NK 03/29/18 Primary Care Physician: Care Physician,No Primary [Primary Care Provider] - Test Results: Test results from this visit will be discussed in further detail at your follow- up appointment, if applicable. Please Follow Up With: Hayden Phan MD When: next sunday Proposed Discharge Date: 04/05/18
--- NOTE | 2018-04-05 13:55 | DS.PCM_ITS ---
Discharge Date and Diagnosis Date of Admission: 04/01/18 Date of Discharge: 04/05/18 - Primary Discharge Diagnosis Active and Suspected Problems Status post tracheostomy (Acute) for airway obstruction secondary to laryngeal mass COPD (chronic obstructive pulmonary disease) (Suspected) - Secondary Discharge Diagnosis Chronic Problems GERD (gastroesophageal reflux disease) (Chronic) Laryngeal mass (Chronic) Tobacco dependence COPD suspected Hospital Course and Treatment Imaging Results: Clinical Impression(s) from Imaging Studies Chest X-Ray 04/01/18 11:19 IMPRESSION: Scattered calcified granulomas. Electronically Signed: Kevin Fournier MD at 11:28 EST , Service support , Videofluoroscopic Swallow 04/03/18 13:40 IMPRESSION: Silent aspiration with ingestion of thin liquids. The swallow study findings were discussed with the patient by the speech pathologist at the conclusion of the examination. Please see speech pathology report for more information and recommendations. Electronically Signed: Kevin Fournier, at 15:45 EST , Service support , Dr. Blake-otolaryngology Procedures: - - Tracheostomy and excisional biopsy of laryngeal mass by Dr. Blake on 04/01/2018 Summary of Care Provided: The patient is a 43-year-old female with a past medical history of tobacco dependence, GERD and suspected COPD who was recently found to have a laryngeal mass. She was admitted to the hospital on 04/01/2018 with complaints of increasing dyspnea and hoarse voice over the preceding 2 weeks. She felt as though her airway was closing up. She was admitted to the hospital for planned tracheostomy by Dr. Blake. She was admitted to the ICU post-operatively and consult was ordered for ST. She had a continuous pulse oximeter placed while in the ICU. There was a tentative plan in place for changing the trach to a cuffless trach on 04/04 however the bx of the laryngeal mass was negat [facility] for malignancy and the tracheostomy was removed on 04/04/2018. She was followed by speech therapy while in the hospital and was approved for pur?ed diet with nectar thick liquids. She was kept in the hospital overnight on 04/04/2018 for continuous pulse oximetry and she had no desaturations. She was discharged from the hospital on 04/05/2018 and has a follow-up appointment with Dr. Blake on 04/10/2018. She also has a follow-up appointment scheduled with Bebeto from speech therapy. PHYSICAL EXAM: GENERAL: alert, oriented X 3, Cooperative, NAD, able to phonate if she covers the tracheostomy ORAL: moist mucosa, no mucosal lesions NECK: No JVD, supple, trachea midline with no evidence of periwound erythema, purulent discharge or swelling at the trach site LUNGS: CTA, symmetric chest expansion, diminished throughout HEART: RRR, Normal S1 and S2, no rub, no gallop ABDOMEN: soft, NT, ND, BS present, no guarding with palpation EXTREMITIES: no edema, no cyanosis, no calf tenderness SKIN: No rashes, no breakdown NEUROLOGIC: no focal neurologic deficits PSYCH: appropriate, flat affect This note was generated with [employer] dictation software. It may contain incorrect words, spelling, and punctuation that were not noted in checking the note before signing. - Physical Exam Vital Signs Temp Pulse Resp BP Pulse Ox 98.4 F 61 20 H 128/66 H 97 04/05/18 10:06 04/05/18 10:06 04/05/18 10:06 04/05/18 10:06 04/05/18 10:06 Oxygen Flow Rate (L/min) 8 Oxygen Delivery Method Room Air Weight: 184 lb 15.485 oz Body Mass Index (BMI) 28.0 Intake and Output for Last 24 Hours 04/03/18 04/04/18 04/05/18 23:59 23:59 23:59 Intake Total 2985 / 2985 2516 / 2516 1076 / 1076 Output Total 1250 / 1250 600 / 600 600 / 600 Balance 1735 / 1735 1916 / 1916 476 / 476 Call your doctor if you observe: Fever of 101 or Higher, Shortness of breath, Dizziness, Fainting spells, Chest pain, - - COUGH Home Medications: Medications to take at Discharge NK 03/29/18 Primary Care Physician: Care Physician,No Primary [Primary Care Provider] - Please Follow Up With: Hayden Phan MD When: next sunday Disposition: Home Minutes spent on discharge:: 30 Medical Necessity - Tobacco Use Smoking Status: Current every day smoker Tobacco Use: Cigarettes Meaningful Use Info Meaningful Use Diagnoses (Choose all that apply): None applicable Code Visit Inpatient E&M: 99662 Disch Hosp
[2018-04-05 14:25] VITALS: BP 107/78; PULSE 80; RESP 16; TEMP 36.4; O2SAT 98
--- NOTE | 2018-04-05 16:34 | CASEMGMT ---
[facility] NOTE: msg received from Dell @ [facility] stating she received the script for wound care supplies but that she is not sure if insurance is going to cover them. Dell states she tried to contact pt @ [phone] and there was no answer and no option to leave a msg. Call returned to [employer]. No answer. Left msg with [employer] and she was made aware pt has been discharged. Also provided [employer] with pt's 's phone number, Jhonny Avalos: [phone]. Saray INMAN RN CM
== END 2018-04-05 14:28 | disposition home or self-care (01) | DRG 11 ==
LOC: ICU 04-02 08:07 → MS2 04-02 10:24
PROVIDERS: Admitting Provider Family Medicine; Referring Provider Otolaryngology; Visit Provider Otolaryngology
PROC: 0CJS8ZZ Inspection of Larynx, Via Natural or Artificial Opening Endoscopic (ICD-10-PCS; CPT 31575; principal; 2018-04-01 12:15)
PROC: 0B110F4 Bypass Trachea to Cutaneous with Tracheostomy Device, Open Approach (ICD-10-PCS; 2018-04-01 12:15)
DX: J38.7 Other diseases of larynx (principal); J96.90 Respiratory failure, unspecified, unspecified whether with hypoxia or hypercapnia; J98.8 Other specified respiratory disorders; J38.1 Polyp of vocal cord and larynx; K21.9 Gastro-esophageal reflux disease without esophagitis; J44.9 Chronic obstructive pulmonary disease, unspecified; F17.210 Nicotine dependence, cigarettes, uncomplicated
CPT/HCPCS: 31720; 71046; 74230; 80048; 82962; 83735; 85025; 88305; 92526; 92610; 92611; 93005; 94762; 99251; 99406; J7030; J7120; A4216; G0463; J2405

== ENCOUNTER → 2018-08-27 | Outpatient (CLI) | payer OTHER, SELFPAY ==
[2018-04-01 17:06] VITALS: BMI 28.0
--- NOTE | 2018-08-27 08:14 | CT_ITS ---
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 COMPARISON: None. TECHNIQUE: Helical CT axial images are obtained from the base of skull through the thoracic inlet without IV contrast. Multiplanar reconstruction. A radiation dose optimization technique was used for this scan. # of images incl. paperwork: 330 FINDINGS: AERODIGESTIVE: The nasopharynx, oropharynx, oral cavity, hypopharynx, and larynx have a normal appearance. No mucosal based lesions or definite masses. The tongue base and retromolar trigones have a normal appearance. The airway is patent without mass effect upon it. LYMPH NODES: No abnormal cervical lymphadenopathy. NECK GLANDS: Bilateral parotid and submandibular glands have a normal appearance. The thyroid gland is normal in size without significant nodules. SOFT TISSUES: The neck and facial soft tissues show no cellulitic changes or abnormal fluid collections. SKULL BASE: Mild chronic right maxillary sinus floor disease and minimal left maxillary sinus chronic disease. Mild opacification bilateral anterior ethmoid air cells. Remaining paranasal sinuses as visualized are clear. Mastoid air cells are clear. LUNG APICES: Visualized lung apices demonstrates no masses or suspicious nodules. Partially seen moderate pulmonary emphysema. There is remnant of mild residual thymic tissue within the anterior superior mediastinum, normal variant. BONES: No destructive lytic or blastic osseous lesions. No significant cervical spine degenerative changes. CT/Soft Tissue Neck without Contr IMPRESSION: 1. No neck masses or abnormal cervical lymphadenopathy on this nonenhanced exam. 2. Normal-appearing trachea and upper airway without mass-effect. 3. Mild bilateral anterior ethmoid sinus disease. Mild chronic right maxillary and minimal chronic left maxillary sinus disease. 4. Small amount of residual thymic tissue within the anterior superior mediastinum, normal variant. 5. Partially seen moderate pulmonary emphysema. Individualized dose optimization techniques were used for this CT. at [id number] Reported and signed by: Guille Roberts MD Electronically Signed: Guille Roberts MD at 16:22 EDT Tel , Service support ,
== END | disposition home or self-care (01) ==
LOC: CT 08:08
PROVIDERS: Referring Provider Otolaryngology; Visit Provider Otolaryngology
DX: R06.00 Dyspnea, unspecified (principal)
CPT/HCPCS: 70490

== ENCOUNTER → 2020-06-14 15:31 | Outpatient (CLI) | payer OTHER, SELFPAY ==
[2018-04-01 17:06] VITALS: BMI 28.0
--- NOTE | 2020-06-14 15:34 | US_ITS ---
STUDY: ULTRASOUND OF THE FEMALE PELVIS - COMPLETE REASON FOR EXAM: Female, 45 years old. ABN Bleeding, pelvic PAIN,DYSPAREUNIA LMP: 05/23/2020. TECHNIQUE: Transabdominal and Transvaginal TECHNICAL QUALITY: Adequate. COMPARISON: None. FINDINGS: The uterus is retroverted and is in a midline position. The uterus measures 9.8 cm x 6.9 cm x 5.4 cm. There is a Nabothian cyst of the cervix. The endometrium measures 15 mm in thickness, and is hyperechoic. There is no demonstrated endometrial mass. There is no demonstrated myometrial mass. I.U.D. - The patient does not have an I.U.D. The right ovary is visualized. The right ovary measures 2.5 cm x 1.6 cm x 1.3 cm. There is no right ovarian cyst or ovarian mass. There is no visualized right adnexal mass or complex lesion. There is normal arterial and normal venous vascularity. The left ovary is visualized. The left ovary measures 3.6 cm x 2.5 cm x 2.1 cm. There is a 1.6 cm x 1.7 cm x 1.4 cm solid nodule in the left ovary with focal calcification. Correlation with CT scan recommended. There is no visualized left adnexal mass or complex lesion. There is normal arterial and normal venous vascularity. There is no fluid in the cul-de-sac. The pre void volume of the bladder was 221 ml. Polycystic ovary disease: No. US/Pelvic (Non ) IMPRESSION: Thickened endometrium. This may be related to the patient''s menstrual phase. 1.6 x 1.7 cm x 1.4 cm solid nodule in the left ovary with a 4 mm calcification. Correlation with CT scan is recommended. Electronically Signed: Kevin Fournier MD at 14:14 EDT , Service support ,
--- NOTE | 2020-06-14 15:35 | US_ITS ---
STUDY: ULTRASOUND OF THE FEMALE PELVIS - COMPLETE REASON FOR EXAM: Female, 45 years old. ABN Bleeding, pelvic PAIN,DYSPAREUNIA LMP: 05/23/2020. TECHNIQUE: Transabdominal and Transvaginal TECHNICAL QUALITY: Adequate. COMPARISON: None. FINDINGS: The uterus is retroverted and is in a midline position. The uterus measures 9.8 cm x 6.9 cm x 5.4 cm. There is a Nabothian cyst of the cervix. The endometrium measures 15 mm in thickness, and is hyperechoic. There is no demonstrated endometrial mass. There is no demonstrated myometrial mass. I.U.D. - The patient does not have an I.U.D. The right ovary is visualized. The right ovary measures 2.5 cm x 1.6 cm x 1.3 cm. There is no right ovarian cyst or ovarian mass. There is no visualized right adnexal mass or complex lesion. There is normal arterial and normal venous vascularity. The left ovary is visualized. The left ovary measures 3.6 cm x 2.5 cm x 2.1 cm. There is a 1.6 cm x 1.7 cm x 1.4 cm solid nodule in the left ovary with focal calcification. Correlation with CT scan recommended. There is no visualized left adnexal mass or complex lesion. There is normal arterial and normal venous vascularity. There is no fluid in the cul-de-sac. The pre void volume of the bladder was 221 ml. Polycystic ovary disease: No. US/Transvaginal Non- IMPRESSION: Thickened endometrium. This may be related to the patient''s menstrual phase. 1.6 x 1.7 cm x 1.4 cm solid nodule in the left ovary with a 4 mm calcification. Correlation with CT scan is recommended. Electronically Signed: Kevin Fournier MD at 14:14 EDT , Service support ,
== END ==
PROVIDERS: Referring Provider Obstetrics & Gynecology; Visit Provider Obstetrics & Gynecology
DX: N93.9 Abnormal uterine and vaginal bleeding, unspecified (principal); N94.10 Unspecified dyspareunia
CPT/HCPCS: 76830; 76856

== ENCOUNTER → 2020-12-07 14:16 | Outpatient (CLI) | payer OTHER, SELFPAY ==
[2020-12-07 16:23] LABS: Free T3 7.3 pg/mL (2.18-3.98); T4 Free Direct 1.89 ng/dL (0.76-1.46); Thyroid Stim Hormone (TSH) < 0.01 uIU/mL (0.358-3.74)
== END ==
PROVIDERS: Referring Provider Internal Medicine Endocrinology, Diabetes & Metabolism; Visit Provider Internal Medicine Endocrinology, Diabetes & Metabolism
DX: E05.90 Thyrotoxicosis, unspecified without thyrotoxic crisis or storm (principal)
CPT/HCPCS: 36415; 84439; 84443; 84445; 84481

== ENCOUNTER → 2021-01-24 11:40 | Outpatient (CLI) | payer OTHER, SELFPAY ==
[2021-01-24 15:57] LABS: Free T3 2.9 pg/mL (2.18-3.98); Thyroid Stim Hormone (TSH) < 0.01 uIU/mL (0.358-3.74)
[2021-01-24 15:57] LABS: AST(SGOT) 20 U/L (15-37); Alanine Aminotransfer ALT/SGPT 33 U/L (13-56); Albumin, Serum 3.6 g/dL (3.2-5.0); Alkaline Phosphatase 112 U/L (45-117); Bilirubin, Direct < 0.05 mg/dL (0.00-0.30); Globulin 3.7 g/dL (2.2-4.2); Protein, Total 7.3 g/dL (6.4-8.2)
== END ==
PROVIDERS: Visit Provider Internal Medicine Endocrinology, Diabetes & Metabolism
DX: E05.90 Thyrotoxicosis, unspecified without thyrotoxic crisis or storm (principal)
CPT/HCPCS: 36415; 80076; 84439; 84443; 84481

== ENCOUNTER 2021-04-14 09:40 | Outpatient (CLI) | payer OTHER, SELFPAY ==
[2021-04-14 12:59] LABS: Vitamin B12 308 pg/mL (211-911); Vitamin D,25 Hydroxy 12.5 ng/mL
[2021-04-14 13:12] LABS: AST(SGOT) 18 U/L (15-37); Alanine Aminotransfer ALT/SGPT 21 U/L (13-56); Albumin, Serum 3.6 g/dL (3.2-5.0); Alkaline Phosphatase 105 U/L (45-117); Anion Gap 4 (5-15); BUN 4 mg/dL (7-18); BUN/Creat Ratio 7.2 RATIO (10-20); Calcium,Total 8.3 mg/dL (8.5-10.1); Chloride 105 mmol/L (98-107); Creatinine, Serum 0.56 mg/dL (0.55-1.02); EST Glomerular Filtration Rate 124 mL/min (>60); Est Glom Filt Rate - Afr Amer 149 mL/min (>60); Globulin 3.5 g/dL (2.2-4.2); Glucose 91 mg/dL (74-106); Potassium 3.2 mmol/L (3.5-5.1); Protein, Total 7.1 g/dL (6.4-8.2); Sodium Level 140 mmol/L (136-145); T4 Free Direct 1.05 ng/dL (0.76-1.46); Thyroid Stim Hormone (TSH) < 0.01 uIU/mL (0.358-3.74)
== END 2021-04-14 23:59 | disposition home or self-care (01) ==
LOC: BIMLAB 09:42
PROVIDERS: Referring Provider Internal Medicine Endocrinology, Diabetes & Metabolism; Visit Provider Internal Medicine Endocrinology, Diabetes & Metabolism
DX: E05.90 Thyrotoxicosis, unspecified without thyrotoxic crisis or storm (principal); E55.9 Vitamin D deficiency, unspecified; R25.2 Cramp and spasm; R20.2 Paresthesia of skin
CPT/HCPCS: 36415; 80053; 82306; 82607; 84439; 84443; 84481

== ENCOUNTER → 2021-08-12 | Outpatient (CLI) | payer OTHER, SELFPAY ==
[2021-08-12 10:54] LABS: ALB/GLOB Ratio 0.9 RATIO (0.9-2.4); AST(SGOT) 14 U/L (15-37); Alanine Aminotransfer ALT/SGPT 19 U/L (13-56); Albumin, Serum 3.4 g/dL (3.2-5.0); Alkaline Phosphatase 88 U/L (45-117); Anion Gap 7 (5-15); BUN 6 mg/dL (7-18); BUN/Creat Ratio 11.9 RATIO (10-20); Calcium,Total 8.4 mg/dL (8.5-10.1); Chloride 104 mmol/L (98-107); EST Glomerular Filtration Rate 138 mL/min (>60); Est Glom Filt Rate - Afr Amer 167 mL/min (>60); Free T3 5.5 pg/mL (2.18-3.98); Globulin 3.6 g/dL (2.2-4.2); Glucose 81 mg/dL (74-106); Potassium 3.1 mmol/L (3.5-5.1); Sodium Level 137 mmol/L (136-145); T4 Free Direct 1.52 ng/dL (0.76-1.46); Thyroid Stim Hormone (TSH) < 0.01 uIU/mL (0.358-3.74)
[2021-08-12 16:58] LABS: Vitamin D,25 Hydroxy 32.1 ng/mL
== END | disposition home or self-care (01) ==
LOC: LAB 09:03
PROVIDERS: Visit Provider Internal Medicine Endocrinology, Diabetes & Metabolism
DX: E05.90 Thyrotoxicosis, unspecified without thyrotoxic crisis or storm (principal); E55.9 Vitamin D deficiency, unspecified
CPT/HCPCS: 36415; 80053; 82306; 84439; 84443; 84481

== ENCOUNTER → 2022-02-09 | Outpatient (CLI) | payer OTHER, SELFPAY ==
[2022-02-09 13:49] LABS: BUN 5 mg/dL (7-18); Creatinine, Serum 0.48 mg/dL (0.55-1.02); EST Glomerular Filtration Rate 146 mL/min (>60); Est Glom Filt Rate - Afr Amer 177 mL/min (>60); Glucose 95 mg/dL (74-106)
[2022-02-09 13:50] LABS: Anion Gap 4 (5-15); BUN/Creat Ratio 10.4 RATIO (10-20); Chloride 107 mmol/L (98-107); Free T3 4.2 pg/mL (2.18-3.98); Potassium 3.2 mmol/L (3.5-5.1); Sodium Level 139 mmol/L (136-145); T4 Free Direct 1.26 ng/dL (0.76-1.46); Thyroid Stim Hormone (TSH) < 0.01 uIU/mL (0.358-3.74)
== END | disposition home or self-care (01) ==
LOC: LAB 11:19
PROVIDERS: Visit Provider Internal Medicine Endocrinology, Diabetes & Metabolism
DX: E87.6 Hypokalemia (principal); E05.90 Thyrotoxicosis, unspecified without thyrotoxic crisis or storm
CPT/HCPCS: 36415; 80048; 84439; 84443; 84481

== ENCOUNTER → 2022-03-07 | Outpatient (CLI) | payer OTHER, SELFPAY ==
[2022-03-07 17:56] LABS: Anion Gap 6 (5-15); BUN 5 mg/dL (7-18); BUN/Creat Ratio 7.5 RATIO (10-20); Calcium,Total 8.8 mg/dL (8.5-10.1); Chloride 106 mmol/L (98-107); Creatinine, Serum 0.67 mg/dL (0.55-1.02); EST Glomerular Filtration Rate 100 mL/min (>60); Est Glom Filt Rate - Afr Amer 121 mL/min (>60); Free T3 2.5 pg/mL (2.18-3.98); Glucose 86 mg/dL (74-106); Potassium 3.1 mmol/L (3.5-5.1); Sodium Level 143 mmol/L (136-145); T4 Free Direct 0.86 ng/dL (0.76-1.46); Thyroid Stim Hormone (TSH) 0.21 uIU/mL (0.358-3.74)
== END | disposition home or self-care (01) ==
LOC: LAB 16:17
PROVIDERS: Visit Provider Internal Medicine Endocrinology, Diabetes & Metabolism
DX: E87.6 Hypokalemia (principal); E05.90 Thyrotoxicosis, unspecified without thyrotoxic crisis or storm
CPT/HCPCS: 36415; 80048; 84439; 84443; 84481

== ENCOUNTER → 2022-04-04 | Outpatient (CLI) | payer OTHER, SELFPAY ==
[2022-04-04 11:09] LABS: Anion Gap 4 (5-15); BUN 5 mg/dL (7-18); BUN/Creat Ratio 6.1 RATIO (10-20); Calcium,Total 9.1 mg/dL (8.5-10.1); Chloride 106 mmol/L (98-107); Creatinine, Serum 0.82 mg/dL (0.55-1.02); EST Glomerular Filtration Rate 78 mL/min (>60); Est Glom Filt Rate - Afr Amer 95 mL/min (>60); Free T3 2.2 pg/mL (2.18-3.98); Glucose 115 mg/dL (74-106); Potassium 3.9 mmol/L (3.5-5.1); Sodium Level 140 mmol/L (136-145); T4 Free Direct 0.67 ng/dL (0.76-1.46); Thyroid Stim Hormone (TSH) 4.26 uIU/mL (0.358-3.74)
== END | disposition home or self-care (01) ==
LOC: LAB 09:35
PROVIDERS: Visit Provider Internal Medicine Endocrinology, Diabetes & Metabolism
DX: E05.90 Thyrotoxicosis, unspecified without thyrotoxic crisis or storm (principal); E87.6 Hypokalemia
CPT/HCPCS: 36415; 80048; 84439; 84443; 84481

== ENCOUNTER → 2022-07-19 | Outpatient (CLI) | payer OTHER, SELFPAY ==
[2022-07-19 15:49] LABS: Vitamin D,25 Hydroxy 72.3 ng/mL
[2022-07-19 15:55] LABS: Anion Gap 8 (5-15); BUN 5 mg/dL (7-18); BUN/Creat Ratio 8.9 RATIO (10-20); Calcium,Total 8.5 mg/dL (8.5-10.1); Chloride 109 mmol/L (98-107); Creatinine, Serum 0.56 mg/dL (0.55-1.02); EST Glomerular Filtration Rate 121 mL/min (>60); Est Glom Filt Rate - Afr Amer 147 mL/min (>60); Free T3 3.3 pg/mL (2.18-3.98); Glucose 91 mg/dL (74-106); Potassium 3.3 mmol/L (3.5-5.1); Sodium Level 143 mmol/L (136-145); T4 Free Direct 1.03 ng/dL (0.76-1.46); Thyroid Stim Hormone (TSH) 1.62 uIU/mL (0.358-3.74)
== END | disposition home or self-care (01) ==
LOC: BIMLAB 14:24
PROVIDERS: Nurse Practitioner Family; Referring Provider Internal Medicine Endocrinology, Diabetes & Metabolism; Visit Provider Internal Medicine Endocrinology, Diabetes & Metabolism
DX: E87.6 Hypokalemia (principal); E05.90 Thyrotoxicosis, unspecified without thyrotoxic crisis or storm; E55.9 Vitamin D deficiency, unspecified
CPT/HCPCS: 36415; 80048; 82306; 84439; 84443; 84481

== ENCOUNTER → 2022-10-13 | Outpatient (CLI) | payer OTHER, SELFPAY ==
[2022-10-13 12:14] LABS: Absolute Lymphocyte Count 2.58 X10^3/uL (0.83-4.51); Absolute Neutrophil Count 4.3 X10^3/uL (2.0-7.7); Basophil# 0.07 X10^3/uL; Basophil% 0.9 % (0-1); Eosinophils% 2.6 % (0-5); Hematocrit 44.3 % (37-47); Hemoglobin 14.6 g/dL (12.0-15.0); Lymphocyte # 2.58 X10^3/ul (0.83-4.51); Lymphocyte % 33.8 % (19-41); Mean Corpuscular Hgb 29.3 pg (27.0-32.0); Mean Platelet Vol. 10.7 fl (6.2-12.0); Monocyte# 0.47 X10^3/uL; Monocyte% 6.2 % (0-10); NRBC Flagged by Analyzer 0 % (0-5); Neutrophil % 56.4 % (47-70); Platelet Count 284 K/mm3 (150-450); RBC Distribution Width CV 13.5 % (11.6-14.6); RBC Distribution Width SD 43.8 fl (35.1-43.9); Red Blood Count 4.98 M/mm3 (4.2-5.4); White Blood Count 7.6 K/mm3 (4.4-11.0)
[2022-10-13 12:40] LABS: AST(SGOT) 13 U/L (15-37); Alanine Aminotransfer ALT/SGPT 19 U/L (13-56); Albumin, Serum 3.7 g/dL (3.2-5.0); Alkaline Phosphatase 108 U/L (45-117); Bilirubin, Direct 0.08 mg/dL (0.00-0.30); Cholesterol 251 mg/dL (200); Globulin 3.8 g/dL (2.2-4.2); High Density Lipoprotein 46 mg/dL; Magnesium 2.4 mg/dL (1.6-2.6); Protein, Total 7.5 g/dL (6.4-8.2); Triglycerides 150 mg/dL; Very Low Density Lipoprotein 30 mg/dL (5-40)
[2022-10-13 12:47] LABS: Anion Gap 3 (5-15); BUN 10 mg/dL (7-18); BUN/Creat Ratio 13.1 RATIO (10-20); Chloride 107 mmol/L (98-107); Creatinine, Serum 0.77 mg/dL (0.55-1.02); EST Glomerular Filtration Rate 85 mL/min (>60); Est Glom Filt Rate - Afr Amer 103 mL/min (>60); Free T3 2.7 pg/mL (2.18-3.98); Glucose 91 mg/dL (74-106); Potassium 4.4 mmol/L (3.5-5.1); Sodium Level 138 mmol/L (136-145); T4 Free Direct 0.79 ng/dL (0.76-1.46); Thyroid Stim Hormone (TSH) 2.18 uIU/mL (0.358-3.74)
== END | disposition home or self-care (01) ==
LOC: MTLAB 10:29
PROVIDERS: Internal Medicine Endocrinology, Diabetes & Metabolism; PCP Internal Medicine; Referring Provider Internal Medicine; Visit Provider Internal Medicine
DX: Z13.6 Encounter for screening for cardiovascular disorders (principal); E87.6 Hypokalemia; E05.90 Thyrotoxicosis, unspecified without thyrotoxic crisis or storm; R25.2 Cramp and spasm
CPT/HCPCS: 80048; 80061; 80076; 83735; 84439; 84443; 84481; 85025

== ENCOUNTER → 2023-06-14 | Outpatient (CLI) | payer OTHER, SELFPAY ==
[2023-06-14 13:35] LABS: Anion Gap 3 (5-15); BUN 5 mg/dL (7-18); Calcium,Total 9.3 mg/dL (8.5-10.1); Chloride 106 mmol/L (98-107); Creatinine, Serum 0.63 mg/dL (0.55-1.02); EST Glomerular Filtration Rate 107 mL/min (>60); Est Glom Filt Rate - Afr Amer 129 mL/min (>60); Free T3 3.7 pg/mL (2.18-3.98); Glucose 93 mg/dL (74-106); Potassium 3.2 mmol/L (3.5-5.1); Sodium Level 140 mmol/L (136-145); T4 Free Direct 1.16 ng/dL (0.76-1.46); Thyroid Stim Hormone (TSH) 0.54 uIU/mL (0.358-3.74)
== END | disposition home or self-care (01) ==
LOC: LAB 11:49
PROVIDERS: PCP Internal Medicine; Referring Provider Internal Medicine Endocrinology, Diabetes & Metabolism; Visit Provider Internal Medicine Endocrinology, Diabetes & Metabolism
DX: E05.90 Thyrotoxicosis, unspecified without thyrotoxic crisis or storm (principal); E87.6 Hypokalemia
CPT/HCPCS: 36415; 80048; 84439; 84443; 84481

== ENCOUNTER → 2023-10-16 | Outpatient (CLI) | payer OTHER, SELFPAY ==
[2023-10-16 10:44] LABS: ALB/GLOB Ratio 0.9 RATIO (0.9-2.4); AST(SGOT) 16 U/L (15-37); Alanine Aminotransfer ALT/SGPT 22 U/L (13-56); Albumin, Serum 3.3 g/dL (3.2-5.0); Alkaline Phosphatase 123 U/L (45-117); Anion Gap 5 (5-15); BUN 5 mg/dL (7-18); BUN/Creat Ratio 6.3 RATIO (10-20); Chloride 109 mmol/L (98-107); EST Glomerular Filtration Rate 81 mL/min (>60); Est Glom Filt Rate - Afr Amer 98 mL/min (>60); Free T3 3.5 pg/mL (2.18-3.98); Globulin 3.8 g/dL (2.2-4.2); Glucose 118 mg/dL (74-106); Potassium 3.8 mmol/L (3.5-5.1); Protein, Total 7.1 g/dL (6.4-8.2); Sodium Level 140 mmol/L (136-145); T4 Free Direct 1.02 ng/dL (0.76-1.46); Thyroid Stim Hormone (TSH) 0.029 uIU/mL (0.358-3.740)
== END | disposition home or self-care (01) ==
LOC: LAB 09:44
PROVIDERS: PCP Internal Medicine; Referring Provider Internal Medicine Endocrinology, Diabetes & Metabolism; Visit Provider Internal Medicine Endocrinology, Diabetes & Metabolism
DX: E05.90 Thyrotoxicosis, unspecified without thyrotoxic crisis or storm (principal); E87.6 Hypokalemia
CPT/HCPCS: 36415; 80053; 84439; 84443; 84481

== ENCOUNTER → 2024-04-18 | Outpatient (CLI) | payer OTHER, SELFPAY ==
[2024-04-18 14:20] LABS: ALB/GLOB Ratio 1.4 RATIO (0.9-2.4); AST(SGOT) 23 U/L (<=31); Alanine Aminotransfer ALT/SGPT 20 U/L (<=34); Albumin, Serum 4.1 g/dL (3.5-5.0); Alkaline Phosphatase 138 U/L (35-104); Anion Gap 13 (5-15); BUN 10 mg/dL (4-19); BUN/Creat Ratio 14.2 RATIO (10-20); Calcium,Total 9.2 mg/dL (7.6-11.0); Carbon Dioxide 24.2 mmol/L (21.0-32.0); Chloride 105 mmol/L (98-108); Creatinine, Serum 0.69 mg/dL (0.70-1.20); EST Glomerular Filtration Rate 105 (>60); Free T3 4.5 pg/mL (2.18-3.98); Globulin 2.9 g/dL (2.2-4.2); Glucose 92 mg/dL (70-99); Potassium 3.7 mmol/L (3.3-5.1); Sodium Level 142 mmol/L (133-145); Thyroid Stim Hormone (TSH) 0.109 uIU/mL (0.300-4.200)
== END | disposition home or self-care (01) ==
LOC: LAB 11:43
PROVIDERS: PCP Internal Medicine; Referring Provider Internal Medicine Endocrinology, Diabetes & Metabolism; Visit Provider Internal Medicine Endocrinology, Diabetes & Metabolism
DX: E05.90 Thyrotoxicosis, unspecified without thyrotoxic crisis or storm (principal); E87.6 Hypokalemia
CPT/HCPCS: 36415; 80053; 84439; 84443; 84481

== ENCOUNTER → 2024-05-12 | Outpatient (CLI) | payer OTHER, SELFPAY ==
--- NOTE | 2024-05-12 14:59 | US_ITS ---
PROCEDURE: THYROID 05/12/2024 REASON FOR EXAM: THYROTOXICOSIS TECHNIQUE: Thyroid ultrasound Ultrasound of the thyroid gland COMPARISON: None available FINDINGS: Right thyroid lobe measures 4.7 x 2.1 x 2.2. Left thyroid lobe measures 4.4 x 2.0 x 1.5. Isthmus thickness is0.3. Thyroid Size: Normal Background Echotexture: Heterogeneous Thyroid Nodules: Hypoechoic structure within the mid right thyroid lobe measuring 0.7 x 0.6 x 0.3 cm. Hypoechoic structure within the superior thyroid lobe measuring 0.6 x 0.4 x 0.3 cm. Other: US/Thyroid IMPRESSION: OVERALL FINAL ASSESSMENT: TI-RADS 2: Benign nodules (0% risk of malignancy). Reading Location: [facility]
[2024-05-12 18:44] LABS: Anion Gap 12 (5-15); BUN 5 mg/dL (4-19); BUN/Creat Ratio 7.6 RATIO (10-20); Calcium,Total 9.2 mg/dL (7.6-11.0); Carbon Dioxide 24.4 mmol/L (21.0-32.0); Chloride 105 mmol/L (98-108); Creatinine, Serum 0.64 mg/dL (0.70-1.20); EST Glomerular Filtration Rate 107 (>60); Glucose 95 mg/dL (70-99); Potassium 3.5 mmol/L (3.3-5.1); Sodium Level 141 mmol/L (133-145)
[2024-05-12 19:48] LABS: Free T3 3.7 pg/mL (2.18-3.98); Thyroid Stim Hormone (TSH) 0.445 uIU/mL (0.300-4.200)
== END | disposition home or self-care (01) ==
LOC: US 14:59 → OPUS 15:05
PROVIDERS: PCP Internal Medicine; Referring Provider Internal Medicine Endocrinology, Diabetes & Metabolism; Visit Provider Internal Medicine Endocrinology, Diabetes & Metabolism
DX: E05.90 Thyrotoxicosis, unspecified without thyrotoxic crisis or storm (principal); E87.6 Hypokalemia
CPT/HCPCS: 36415; 76536; 80048; 84439; 84443; 84481